=== PATIENT | female | born 1960 | race Caucasian/White ===

== ENCOUNTER 2021-08-13 22:27 | Emergency (ER) | payer OTHER ==
[2021-08-14] MEDS ORDERED: DIPHENHYDRAMINE 50 MG/ML VIAL ONE (01:32)
[2021-08-14] MEDS ORDERED: BEBTELOVIMAB 175 MG/2 ML VIAL IV ONE (01:32)
[2021-08-14] MEDS ORDERED: ACETAMINOPHEN 325 MG TABLET ONE (01:33)
[2021-08-14] MEDS ORDERED: NA CHLORIDE 0.9% 1,000 ML ONE (03:22)
--- NOTE | 2021-08-14 03:35 | ER ---
Nurse's Notes [facility] Name: Winter Cordon Age: 61 yrs Sex: Female : 1960 Arrival Date: 08/13/2021 Time: 22:35 Bed 7 Private MD: Diagnosis: Coronavirus infection, unspecified Presentation: 08/13 22:48 Chief complaint: Patient states: Test COVID + today - pt is concerned because of cancer ld1 history. Requesting antibodies. Coronavirus screen: Client presents with at least one sign or symptom that may indicate coronavirus-19. Standard/surgical mask placed on the client. Ebola Screen: No symptoms or risks identified at this time. Initial Sepsis Screen: Does the patient meet any 2 criteria? No. Patient's initial sepsis screen is negative. Does the patient have a suspected source of infection? No. Patient's initial sepsis screen is negative. Risk Assessment: Do you want to hurt yourself or someone else? Patient reports no desire to harm self or others. Onset of symptoms was August 13, 2021 at 22:49. 22:48 Method Of Arrival: Ambulatory ld1 22:48 Acuity: HERI 4 ld1 Triage Assessment: 22:49 General: Appears in no apparent distress. comfortable, Behavior is calm, cooperative, ld1 appropriate for age. Pain: Denies pain. EENT: No signs and/or symptoms were reported regarding the EENT system. Neuro: Level of Consciousness is awake, alert, obeys commands, Oriented to person, place, time, situation. Cardiovascular: Capillary refill < 3 seconds Patient's skin is warm and dry. Respiratory: Airway is patent Respiratory effort is even, unlabored. GI: Abdomen is flat, non-distended. : No signs and/or symptoms were reported regarding the genitourinary system. Derm: No signs and/or symptoms reported regarding the dermatologic system. Musculoskeletal: No signs and/or symptoms reported regarding the musculoskeletal system. Historical: - Allergies: 22:49 No Known Allergies; ld1 - PMHx: 22:49 cancer; ld1 - PSHx: 22:49 None; ld1 - Immunization history:: Adult Immunizations not up to date, Client reports having NOT received the Covid vaccine. - Social history:: Smoking status: Patient denies any tobacco usage or history of. Patient/guardian denies using alcohol. Screenin/11 01:40 Abuse screen: Denies threats or abuse. Denies injuries from another. Nutritional sm5 screening: No deficits noted. Tuberculosis screening: No symptoms or risk factors identified. Fall Risk None identified. Assessment: 01:40 General: Appears in no apparent distress. Behavior is cooperative. Neuro: No deficits sm5 noted. Aranda Agitation-Sedation Scale (RASS): 0 - Alert and Calm Level of Consciousness is awake, alert, obeys commands, Oriented to person, place, time, situation. Cardiovascular: No deficits noted. Capillary refill < 3 seconds Patient's skin is warm and dry. Respiratory: Reports cough that is Airway is patent Trachea midline Respiratory effort is even, unlabored. 02:50 Reassessment: No changes from previously documented assessment. Patient is alert, sm5 oriented x 3, equal unlabored respirations, skin warm/dry/pink. 04:00 Reassessment: No changes from previously documented assessment. Patient and/or family 5 updated on plan of care and expected duration. Pain level reassessed. Vital Signs: 08/13 22:48 BP 131 / 66; Pulse 126; Resp 18; Temp 99.1(TE); Pulse Ox 99% on R/A; Weight 53.52 kg; ld1 Height 5 ft. 3 in. (160.02 cm); Pain 0/10; 08/14 01:39 BP 144 / 112; Pulse 133; Resp 20; Temp 98.9(O); Pulse Ox 97% on R/A; sm5 02:50 BP 115 / 70; Pulse 111; Resp 18; Pulse Ox 96% ; kd3 03:03 Temp 98.9(O); kd3 08/13 22:48 Body Mass Index 20.90 (53.52 kg, 160.02 cm) ld1 ED Course: 08/13 22:35 Patient arrived in ED. bp1 22:49 Triage completed. ld1 22:49 Arm band placed on right wrist. ld1 22:54 Valerie Leblanc, BOAZ is Primary Nurse. kd3 23:42 Mp Avila MD is Attending Physician. [facility] 08/14 01:30 Inserted saline lock: 20 gauge in left antecubital area, using aseptic technique. sm5 01:40 Patient has correct armband on for positive identification. Bed in low position. Call [facility] light in reach. Side rails up X2. Pulse ox on. NIBP on. 04:00 No provider procedures requiring assistance completed. 5 04:01 IV discontinued, intact, bleeding controlled, No redness/swelling at site. Pressure 5 dressing applied. Administered Medications: 01:35 Drug: Tylenol 650 mg Route: PO; sm5 04:01 Follow up: Response: No adverse reaction 5 01:35 Drug: Benadryl (diphenhydrAMINE) 25 mg Route: IVP; Site: left antecubital; sm5 04:01 Follow up: Response: No adverse reaction 5 03:19 Drug: NS 0.9% 1000 ml Route: IV; Rate: 1 bolus; Site: right antecubital; kd3 04:01 Follow up: IV Status: Completed infusion; IV Intake: 1000ml 5 Medication: 03:04 VIS not applicable for this client. kd3 Intake: 04:01 IV: 1000ml; Total: 1000ml. 5 Outcome: 03:34 Discharge ordered by . [facility] 04:00 Discharged to home ambulatory, with significant other. 5 04:00 Condition: stable 04:00 Discharge instructions given to patient, Instructed on discharge instructions, follow up and referral plans. medication usage, Demonstrated understanding of instructions, follow-up care, medications, Prescriptions given X 4. 04:08 Patient left the ED. [facility] Signatures: Cindi Stevens Maurice, MD MD 7 Luisa Woody RN RN ld1 Valerie Leblanc RN RN kd3 Marine Sheffield RN RN 5 Corrections: (The following items were deleted from the chart) 08/13 22:50 22:49 PMHx: None; ld1 ld1
--- NOTE | 2021-08-14 03:35 | EDPHYS ---
Physician Documentation [facility] Name: Winter Cordon Age: 61 yrs Sex: Female : 1960 Arrival Date: 08/13/2021 Time: 22:35 Bed 7 Private MD: ED Physician Mp Avila HPI: 08/14 00:45 This 61 yrs old Female presents to ER via Ambulatory with complaints of Runny Nose, mh7 Covid+. 00:45 The patient or guardian reports runny nose. Onset: The symptoms/episode began/occurred mh7 last night. Severity of symptoms: At their worst the symptoms were moderate, last night, in the emergency department the symptoms have improved, moderately. Modifying factors: The symptoms are alleviated by nothing, the symptoms are aggravated by nothing. Associated signs and symptoms: Pertinent negatives: chest pain, diarrhea, ear ache, fever, nausea, sore throat, vomiting. Tested positive for COVID at home prior to coming to the ER. Historical: - Allergies: 08/13 22:49 No Known Allergies; ld1 - PMHx: 22:49 cancer; ld1 - PSHx: 22:49 None; ld1 - Immunization history:: Adult Immunizations not up to date, Client reports having NOT received the Covid vaccine. - Social history:: Smoking status: Patient denies any tobacco usage or history of. Patient/guardian denies using alcohol. ROS: 08/14 00:45 Constitutional: Negative for fever, chills, and weight loss, Eyes: Negative for injury, mh7 pain, redness, and discharge, Neck: Negative for injury, pain, and swelling, Cardiovascular: Negative for chest pain, palpitations, and edema, Respiratory: Negative for shortness of breath, cough, wheezing, and pleuritic chest pain, Abdomen/GI: Negative for abdominal pain, nausea, vomiting, diarrhea, and constipation, Back: Negative for injury and pain, : Negative for injury, bleeding, discharge, and swelling, MS/Extremity: Negative for injury and deformity, Skin: Negative for injury, rash, and discoloration, Neuro: Negative for headache, weakness, numbness, tingling, and seizure, Psych: Negative for depression, anxiety, suicide ideation, homicidal ideation, and hallucinations, Allergy/Immunology: Negative for hives, rash, and allergies, Endocrine: Negative for neck swelling, polydipsia, polyuria, polyphagia, and marked weight changes, Hematologic/Lymphatic: Negative for swollen nodes, abnormal bleeding, and unusual bruising. Exam: 00:45 Constitutional: This is a well developed, well nourished patient who is awake, alert, mh7 and in no acute distress. Head/Face: Normocephalic, atraumatic. Eyes: Pupils equal round and reactive to light, extra-ocular motions intact. Lids and lashes normal. Conjunctiva and sclera are non-icteric and not injected. Cornea within normal limits. Periorbital areas with no swelling, redness, or edema. ENT: Nares patent. No nasal discharge, no septal abnormalities noted. Tympanic membranes are normal and external auditory canals are clear. Oropharynx with no redness, swelling, or masses, exudates, or evidence of obstruction, uvula midline. Mucous membranes moist. Neck: Trachea midline, no thyromegaly or masses palpated, and no cervical lymphadenopathy. Supple, full range of motion without nuchal rigidity, or vertebral point tenderness. No Meningismus. Chest/axilla: Normal chest wall appearance and motion. Nontender with no deformity. No lesions are appreciated. Cardiovascular: Regular rate and rhythm with a normal S1 and S2. No gallops, murmurs, or rubs. Normal PMI, no JVD. No pulse deficits. Respiratory: Lungs have equal breath sounds bilaterally, clear to auscultation and percussion. No rales, rhonchi or wheezes noted. No increased work of breathing, no retractions or nasal flaring. Abdomen/GI: Soft, non-tender, with normal bowel sounds. No distension or tympany. No guarding or rebound. No evidence of tenderness throughout. Back: No spinal tenderness. No costovertebral tenderness. Full range of motion. Skin: Warm, dry with normal turgor. Normal color with no rashes, no lesions, and no evidence of cellulitis. MS/ Extremity: Pulses equal, no cyanosis. Neurovascular intact. Full, normal range of motion. Neuro: Awake and alert, GCS 15, oriented to person, place, time, and situation. Cranial nerves II-XII grossly intact. Motor strength 5/5 in all extremities. Sensory grossly intact. Cerebellar exam normal. Normal gait. Psych: Awake, alert, with orientation to person, place and time. Behavior, mood, and affect are within normal limits. Vital Signs: 08/13 22:48 BP 131 / 66; Pulse 126; Resp 18; Temp 99.1(TE); Pulse Ox 99% on R/A; Weight 53.52 kg; ld1 Height 5 ft. 3 in. (160.02 cm); Pain 0/10; 08/14 01:39 BP 144 / 112; Pulse 133; Resp 20; Temp 98.9(O); Pulse Ox 97% on R/A; sm5 02:50 BP 115 / 70; Pulse 111; Resp 18; Pulse Ox 96% ; kd3 03:03 Temp 98.9(O); kd3 08/13 22:48 Body Mass Index 20.90 (53.52 kg, 160.02 cm) ld1 MDM: 03:09 Differential Diagnosis: Influenza Upper Respiratory Infection Viral Syndrome. Data [facility] reviewed: vital signs, nurses notes. Data interpreted: Pulse oximetry: on room air is 98 %. Interpretation: normal. Counseling: I had a detailed discussion with the patient and/or guardian regarding: the historical points, exam findings, and any diagnostic results supporting the discharge/admit diagnosis, the need for outpatient follow up, to return to the emergency department if symptoms worsen or persist or if there are any questions or concerns that arise at home. Response to treatment: the patient's symptoms have markedly improved after treatment, patient is well hydrated. 03:32 ED course: Well appearing, NAD, VSS, no focal neurological deficits. Patient requests [facility] to be discharged from the ER at this time.. 03:34 Patient medically screened. [facility] 08/14 01:15 [place] [facility]: Bebtelovimab 175 mg IV; Complete Time: 01:56 [facility] Administered Medications: 01:35 Drug: Tylenol 650 mg Route: PO; sm5 04:01 Follow up: Response: No adverse reaction 5 01:35 Drug: Benadryl (diphenhydrAMINE) 25 mg Route: IVP; Site: left antecubital; sm5 04:01 Follow up: Response: No adverse reaction [facility] 03:19 Drug: NS 0.9% 1000 ml Route: IV; Rate: 1 bolus; Site: right antecubital; kd3 04:01 Follow up: IV Status: Completed infusion; IV Intake: 1000ml sm5 Disposition Summary: 08/14/21 03:34 Discharge Ordered Location: Home [facility] Problem: new [facility] Symptoms: have improved [facility] Condition: Stable [facility] Diagnosis - Coronavirus infection, unspecified [facility] Followup: [facility] - With: Private Physician - When: 1 - 2 days - Reason: Worsening of condition, Recheck today's complaints, Continuance of care, Re-evaluation by your physician Discharge Instructions: - Discharge Summary Sheet [facility] - COVID-19 [facility] - COVID-19 Frequently Asked Questions [facility] - 10 Things You Can Do to Manage Your COVID-19 Symptoms at Home - [place] [id number] - COVID-19: Quarantine vs. Isolation - [place] [id number] Forms: - Medication Reconciliation Form [facility] - Thank You Letter [facility] - Antibiotic Education [facility] - Prescription Opioid Use [facility] Prescriptions: - albuterol sulfate 90 mcg/actuation Inhalation HFA aerosol inhaler - inhale 1 puff by INHALATION route every 6 hours As needed; 1 Inhaler; Refills: mh7 0, Product Selection Permitted - Tessalon Perles 100 mg Oral Capsule - take 1 capsule by ORAL route every 8 hours As needed; 15 capsule; Refills: 0, 7 Product Selection Permitted - Zithromax Z-Jonel 250 mg Oral Tablet - take 1 tablet by ORAL route as directed for 5 days Day 1 - take two (2) tablets 7 one time. Day 2, 3, 4 , 5 take one (1) tablet once daily.; 6 tablet; Refills: 0, Product Selection Permitted - aspirin 81 mg Oral tablet,chewable - chew 1 tablet by ORAL route once daily; 30 tablet; Refills: 0, Product 7 Selection Permitted Signatures: Mp Avila MD MD 7 Luisa Woody RN RN ld1 Valerie Leblanc RN RN kd3 Marine Sheffield RN RN sm5 Corrections: (The following items were deleted from the chart) 08/13 22:50 22:49 PMHx: None; ld1 ld1
[2021-08-14 04:16] VITALS: TEMP 98.9
[2021-08-14 04:19] VITALS: BP 115/70; O2SAT 96
== END 2021-08-14 04:08 | disposition home or self-care (01) ==
LOC: ER 22:27
DX: U07.1 COVID-19 (principal)
CPT/HCPCS: 96361; 96374; 99284; J1200; J7030

== ENCOUNTER 2022-03-05 10:13 | Emergency (ER) | payer OTHER ==
--- OUTSIDE RECORDS SUMMARY | 2022-03-05 10:17 | XMS REPORT | Clinical Summary ---
:1960 Author Organization [facility] MD [facility] Address [address] [place] [address] Care Team Providers Name Role Phone Vinnie Franks MD Unavailable Unavailable Angie Sage MD Primary Care Provider Allergies No known active allergies Medications Medication Sig Dispensed Refills Start Date End Date Status FEMARA 2.5 mg tablet Take 1 tablet by 0 04/12/2019 Active mouth daily. Active Problems Problem Noted Date Breast cancer 03/06/2001 Overview: left side Mandatory CMS ICD-10 2020 UPDATE Surgical History Surgery Date Site/Laterality Comments MASTECTOMY 03/06/2001 - 03/05/2002 Left APPENDECTOMY RESECTION MASS CHEST WALL 03/06/2006 - 03/05/2007 Left Medical History Medical History Date Comments Breast cancer 2001 left side Family History Medical History Relation Name Comments Lymphoma Father Relation Name Status Comments Father Social History Tobacco Use Types Packs/Day Years Used Date Smoking Tobacco: Never Smokeless Tobacco: Never Alcohol Use Standard Drinks/Week Comments Never 0 (1 standard drink = 0.6 oz pure alcoho l) Alcohol Habits Answer Date Recorded How often do you have a drink containing alcohol? Never 06/10/2019 How many drinks containing alcohol do you have on a typical Not asked day when you are drinking? How often do you have six or more drinks on one occasion? No t asked Sex Assigned at Date Recorded Not on file Obstetrics History Para Term AB IAB SAB Ectopic Multiple Living Live Births 2 0 0 Date Outcome GA Total Labor/2nd/3rd Weight Sex Delivery Anes PTL Leigha A 1 A5 Name Clin Labor Comments Menarche 15 Parity 0 OBC 3 years Hormonal Therapy none Last Pap 2018. Normal Abnormal Pap none Last Leena about 5 years ago. Normal Last Colon none Breast Bx 01/2002. Left side abnormal. M ystectomy left side. 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
[2022-03-05] MEDS ORDERED: MECLIZINE HCL 12.5 MG TAB ONE (11:04)
[2022-03-05 11:12] LABS: Protime INR 1.23
[2022-03-05 11:14] LABS: Absolute Lymphocytes (CBC) 0.2 K/uL (0.7-4.9); Hematocrit 23.9 % (36.0-45.0); Lymphocytes % 35.3 % (15.3-44.8); MCV 106.6 fL (80-100); MPV 9.8 fL (7.6-11.3); RBC Red Blood Cell Count 2.24 M/uL (3.86-4.86)
[2022-03-05 11:27] LABS: Albumin 2.8 g/dL (3.4-5.0); Bilirubin Direct 0.1 mg/dL (0-0.2); Bilirubin Total 0.3 mg/dL (0.2-1.0); Magnesium 1.7 mg/dL (1.6-2.4); Potassium 3.5 mmol/L (3.5-5.1); Troponin High Sensitivity 4.8 pg/mL (<58.9)
[2022-03-05] MEDS ORDERED: NA CHLORIDE 0.9% 1,000 ML ONE (11:41)
[2022-03-05 12:03] LABS: Urine Blood 1+ (Negative); Urine Glucose Negative (Negative); Urine Protein Negative (Negative); Urine Specific Gravity <=1.005 (1.005-1.030)
[2022-03-05 12:35] LABS: Renal Epithelial <5 /HPF (None Seen); Urine Bacteria Loaded /HPF (<20); Urine Mucus Slight /HPF (None Seen); Urine WBC Clump Rare /HPF (None Seen)
[2022-03-05] MEDS ORDERED: NA CHLORIDE 0.9% 50 ML IV ONE (12:52)
[2022-03-05] MEDS ORDERED: CEFTRIAXONE 1000 MG/VIAL ONE (12:52)
[2022-03-05 12:55] LABS: Blood Morphology Comment NOTED (NOT SEEN); Macrocytosis 1+; Platelet Estimate DECR; Platelets, Giant FEW PRESENT; Polychromasia SLIGHT
[2022-03-05 12:56] LABS: Rouleau SLIGHT; Toxic Granulation 1+
[2022-03-05 12:57] LABS: Dohle Bodies PRESENT
[2022-03-05] MEDS ORDERED: TBO-FILGRASTIM 480 MCG/0.8 ML SYR SQ ONE (13:55)
--- NOTE | 2022-03-05 14:34 | RAD REPORT ---
EXAM DESCRIPTION: CT - Head Brain Wo Cont - 03/05/2022 2:21 pm CLINICAL HISTORY: dizziness COMPARISON: No comparisons TECHNIQUE: All CT scans are performed using dose optimization technique as appropriate and may inclu de automated exposure control or mA/KV adjustment according to patient size. FINDINGS: No intracranial hemorrhage, hydrocephalus or extra-axial fluid collection.No areas of brai n edema or evidence of midline shift. Hyperdense secretions in the left maxillary sinus may be inspissated. The calvarium is intact. IMPRESSION: No acute intracranial abnormality.
--- NOTE | 2022-03-05 14:52 | ER ---
Nurse's Notes [facility] Name: Winter Cordon Age: 62 yrs Sex: Female : 1960 Arrival Date: 03/05/2022 Time: 10:27 Bed 20 Private MD: Diagnosis: Neutropenia, unspecified;UTI/ Urinary tract infection, site not specified;Dizziness and giddiness Presentation: 03/05 10:31 Chief complaint: EMS states: dizziness began today, nausea for 2 weeks, had chemo for eh3 stage 4 breast cancer 2 weeks ago. Coronavirus screen: Vaccine status: Patient reports being unvaccinated. contraindicated. Ebola Screen: No symptoms or risks identified at this time. Initial Sepsis Screen: Does the patient meet any 2 criteria? HR > 90 bpm. No. Patient's initial sepsis screen is negative. Does the patient have a suspected source of infection? No. Patient's initial sepsis screen is negative. Risk Assessment: Do you want to hurt yourself or someone else? Patient reports no desire to harm self or others. Onset of symptoms was March 05, 2022. 10:31 Method Of Arrival: EMS: [facility] 10:31 Acuity: HERI 3 eh3 10:39 Care prior to arrival: Medication(s) given: zofran 4 mg. eh3 Triage Assessment: 10:39 General: Appears in no apparent distress. uncomfortable, Behavior is calm, cooperative, eh3 appropriate for age. Pain: Denies pain. EENT: No signs and/or symptoms were reported regarding the EENT system. Neuro: Level of Consciousness is awake, alert, obeys commands, Oriented to person, place, time, situation. Neuro: Reports dizziness, since this morning. Cardiovascular: Capillary refill < 3 seconds Patient's skin is warm and dry. Respiratory: Airway is patent Respiratory effort is even, unlabored, Respiratory pattern is regular, symmetrical. GI: Abdomen is flat, non-distended, Reports nausea. : No signs and/or symptoms were reported regarding the genitourinary system. Derm: No signs and/or symptoms reported regarding the dermatologic system. Musculoskeletal: No signs and/or symptoms reported regarding the musculoskeletal system. Circulation, motion, and sensation intact. Range of motion: intact in all extremities. Historical: - Allergies: 11:13 No Known Allergies; eh3 - Home Meds: 10:34 Metformin Oral [Active]; bisoprolol fumarate oral [Active]; eh3 11:13 cyclophosphamide oral [Active]; Zoledronic acid [Active]; eh3 - PMHx: 10:39 Cancer; eh3 - Immunization history:: Adult Immunizations not up to date, contraindicated. - Social history:: Smoking status: Patient denies any tobacco usage or history of. Patient/guardian denies using alcohol. Screenin:42 [facility] ED Fall Risk Assessment (Adult) History of falling in the last 3 months, 3 including since admission No falls in past 3 months (0 pts) Confusion or Disorientation No (0 pts) Intoxicated or Sedated No (0 pts) Impaired Gait No (0 pts) Mobility Assist Device Used No (0 pt) Altered Elimination No (0 pt) Score/Fall Risk Level 0 - 2 = Low Risk. Abuse screen: Denies threats or abuse. Denies injuries from another. Nutritional screening: No deficits noted. Tuberculosis screening: No symptoms or risk factors identified. Assessment: 10:42 Reassessment: No changes from previously documented assessment. See triage assessment. 3 11:45 Reassessment: Patient appears in no apparent distress at this time. Patient and/or eh3 family updated on plan of care and expected duration. Pain level reassessed. Patient is alert, oriented x 3, equal unlabored respirations, skin warm/dry/pink. Pt states she had a UTI about 3 weeks ago, and then had a urinary catheter put in, and had dysuria afterwards. States she does not currently have any symptoms of UTI but suspects there may be lingering infection. 12:45 Reassessment: Patient appears in no apparent distress at this time. Patient and/or eh3 family updated on plan of care and expected duration. Pain level reassessed. Patient is alert, oriented x 3, equal unlabored respirations, skin warm/dry/pink. 13:45 Reassessment: Patient appears in no apparent distress at this time. Patient and/or eh3 family updated on plan of care and expected duration. Pain level reassessed. Patient is alert, oriented x 3, equal unlabored respirations, skin warm/dry/pink. Faxed order for Neupogen to pharmacy at 1335. 14:45 Reassessment: Patient appears in no apparent distress at this time. Patient and/or 3 family updated on plan of care and expected duration. Pain level reassessed. Patient is alert, oriented x 3, equal unlabored respirations, skin warm/dry/pink. 15:08 Reassessment: Pt will be discharged once fluids are done infusing, approximately 300 mL jl7 remains to infuse at this time. Vital Signs: 10:31 BP 126 / 112; Pulse 115; Resp 18; Temp 98.1(O); Pulse Ox 100% on R/A; Weight 48.99 kg; eh3 Height 5 ft. 2 in. (157.48 cm); 11:00 BP 106 / 63 Supine; Pulse 107; Resp 18; Pulse Ox 100% on R/A; eh3 11:02 BP 102 / 64; Pulse 114; Resp 24; Pulse Ox 100% on R/A; eh3 11:04 BP 98 / 64; Pulse 117; Resp 30; Pulse Ox 100% on R/A; eh3 11:45 BP 106 / 63; Pulse 111; Resp 18; Pulse Ox 97% on R/A; eh3 12:45 BP 91 / 64; Pulse 109; Resp 17; Pulse Ox 99% on R/A; eh3 13:45 BP 108 / 56; Pulse 108; Resp 22; Pulse Ox 100% on R/A; eh3 14:45 BP 96 / 65; Pulse 119; Resp 21; Pulse Ox 100% on R/A; eh3 15:34 BP 104 / 65; Pulse 100; Resp 21; Temp 98.3(O); Pulse Ox 100% ; jl7 10:31 Body Mass Index 19.75 (48.99 kg, 157.48 cm) 3 ED Course: 10:27 Patient arrived in ED. kb3 10:29 Merry Lazcano FNP-C is [facility]. kb 10:29 Isaiah Garcia MD is Attending Physician. kb 10:31 Alize Ibrahim, BOAZ is Primary Nurse. eh3 10:34 Triage completed. eh3 10:39 Arm band placed on. eh3 10:42 Patient has correct armband on for positive identification. Placed in gown. Bed in low eh3 position. Call light in reach. Side rails up X2. Adult w/ patient. Client placed on continuous cardiac and pulse oximetry monitoring. NIBP monitoring applied. Door closed. Noise minimized. Warm blanket given. 10:42 Maintain EMS IV. Dressing intact. Good blood return noted. Site clean \T\ dry. Gauge \T\ eh 3 site: 20g RAC. 14:23 CT Head Brain wo Cont In Process Unspecified. EDMS 15:34 No provider procedures requiring assistance completed. IV discontinued, intact, jl7 bleeding controlled, No redness/swelling at site. Pressure dressing applied. Administered Medications: 10:55 Drug: Meclizine 25 mg Route: PO; eh3 11:45 Follow up: Response: Nausea is decreased eh3 11:45 Drug: NS 0.9% 1000 ml Route: IV; Rate: 1000 ml; Site: right antecubital; eh3 15:35 Follow up: Response: No adverse reaction; IV Status: Completed infusion; IV Intake: jl7 1000ml 15:36 Follow up: IV Status: Completed infusion; IV Intake: 1000ml eh3 13:09 Drug: Rocephin (cefTRIAXone) 1 grams Route: IV; Rate: calculated rate; Site: right eh3 antecubital; 14:17 Follow up: Response: No adverse reaction; IV Status: Completed infusion; IV Intake: [id number] 14:00 Drug: Neupogen 480 mcg Route: Sub-Q; Site: left lower abdomen; eh3 15:35 Follow up: Response: No adverse reaction eh3 Medication: 15:34 VIS not applicable for this client. jl7 Intake: 14:17 IV: 50ml; Total: 50ml. eh3 15:35 IV: 1000ml; Total: 1050ml. jl7 15:36 IV: 1000ml; Total: 2050ml. eh3 Outcome: 14:51 Discharge ordered by MD. loredo 15:35 Discharged to home ambulatory, with family. jl7 15:35 Condition: stable 15:35 Discharge instructions given to patient, family, Instructed on discharge instructions, follow up and referral plans. medication usage, Demonstrated understanding of instructions, follow-up care, medications, Prescriptions given X 2. 15:36 Patient left the ED. jl7 Addendum: 03/09/2022 09:49 Addendum: Culture Results: Positive urine culture. No further action required. Bacteria a a5 sensitive to prescribed antibiotic. Signatures: Dispatcher [employer] EDMS Merry Lazcano, REFINERY OPERATOR [employer]-Steff CHANEY-Genesis Tirado, RN RN aa5 Kat Kaur RN RN jl7 Alize Ibrahim RN RN 3 Melissa Bejarano RN RN kb3 Corrections: (The following items were deleted from the chart) 03/05 11:17 10:34 Allergies: No Known Allergies; [place] [id number] 11: 10:39 Home Meds: Low dose chemo; [place] [id number] 11:17 10:39 Home Meds: bisphosphonate; [place] [id number] 11: 11:13 Allergies: Endoxcin; [place] [id number] 15:36 14:45 BP 96 / 65; [facility]
--- NOTE | 2022-03-05 14:52 | EDPHYS ---
Physician Documentation [facility] Name: Winter Cordon Age: 62 yrs Sex: Female : 1960 Arrival Date: 03/05/2022 Time: 10:27 Bed 20 Private MD: ED Physician Isaiah Garcia HPI: 03/05 11:37 This 62 yrs old Female presents to ER via EMS with complaints of dizziness. kb 11:37 The patient presents with dizziness. Onset: The symptoms/episode began/occurred this kb morning. Context: occurred at home. Modifying factors: The symptoms are alleviated by nothing, the symptoms are aggravated by movement of head, changing position. Associated signs and symptoms: Pertinent positives: nausea. Severity of symptoms: At their worst the symptoms were moderate in the emergency department the symptoms are unchanged. Patient's baseline: Neuro: alert and fully oriented, Motor: no deficits, Ambulation: walks without assistance, Speech: normal. The patient has not experienced similar symptoms in the past. The patient has not recently seen a physician. Pt reports nausea for 2 weeks after getting chemo treatment. Today has had dizziness that is worse with movement of head and position changes. Historical: - Allergies: 11:13 No Known Allergies; eh3 - Home Meds: 10:34 Metformin Oral [Active]; bisoprolol fumarate oral [Active]; eh3 11:13 cyclophosphamide oral [Active]; Zoledronic acid [Active]; eh3 - PMHx: 10:39 Cancer; eh3 - Immunization history:: Adult Immunizations not up to date, contraindicated. - Social history:: Smoking status: Patient denies any tobacco usage or history of. Patient/guardian denies using alcohol. ROS: 11:37 Constitutional: Negative for fever, chills, and weight loss. kb 11:37 Abdomen/GI: Positive for nausea. 11:37 Neuro: Positive for dizziness. 11:37 All other systems are negative. Exam: 11:39 Constitutional: This is a well developed, well nourished patient who is awake, alert, kb and in no acute distress. Head/Face: Normocephalic, atraumatic. Eyes: Pupils equal round and reactive to light, extra-ocular motions intact. Lids and lashes normal. Conjunctiva and sclera are non-icteric and not injected. Cornea within normal limits. Periorbital areas with no swelling, redness, or edema. ENT: Moist Mucous membranes Cardiovascular: Regular rate and rhythm with a normal S1 and S2. No gallops, murmurs, or rubs. No pulse deficits. Respiratory: Respirations even and unlabored. No increased work of breathing. Talking in full sentences Abdomen/GI: Soft, non-tender. No distention Skin: Warm, dry with normal turgor. Normal color. MS/ Extremity: Pulses equal, no cyanosis. Neurovascular intact. Full, normal range of motion. Neuro: Awake and alert, GCS 15, oriented to person, place, time, and situation. Moves all extremities. Normal gait. 11:39 ECG was reviewed by the Attending Physician. Vital Signs: 10:31 BP 126 / 112; Pulse 115; Resp 18; Temp 98.1(O); Pulse Ox 100% on R/A; Weight 48.99 kg; eh3 Height 5 ft. 2 in. (157.48 cm); 11:00 BP 106 / 63 Supine; Pulse 107; Resp 18; Pulse Ox 100% on R/A; eh3 11:02 BP 102 / 64; Pulse 114; Resp 24; Pulse Ox 100% on R/A; eh3 11:04 BP 98 / 64; Pulse 117; Resp 30; Pulse Ox 100% on R/A; eh3 11:45 BP 106 / 63; Pulse 111; Resp 18; Pulse Ox 97% on R/A; eh3 12:45 BP 91 / 64; Pulse 109; Resp 17; Pulse Ox 99% on R/A; eh3 13:45 BP 108 / 56; Pulse 108; Resp 22; Pulse Ox 100% on R/A; eh3 14:45 BP 96 / 65; Pulse 119; Resp 21; Pulse Ox 100% on R/A; eh3 15:34 BP 104 / 65; Pulse 100; Resp 21; Temp 98.3(O); Pulse Ox 100% ; jl7 10:31 Body Mass Index 19.75 (48.99 kg, 157.48 cm) eh3 MDM: 10:29 Patient medically screened. kb 11:37 Data reviewed: vital signs, nurses notes. Data interpreted: Pulse oximetry: on room air kb is 100 %. Interpretation: normal. 13:30 Counseling: I had a detailed discussion with the patient and/or guardian regarding: the kb historical points, exam findings, and any diagnostic results supporting the discharge/admit diagnosis, lab results, the need for outpatient follow up, oncology, to return to the emergency department if symptoms worsen or persist or if there are any questions or concerns that arise at home. Physician consultation: Spoke with pt's oncologist in [place] who recommended neupogen injection but wanted our oncologist to be involved as well. Consulted Dr Patricia who recommended antibiotics for the UTI and daily neupogen 480mcg injections until WBC are 2.5. Pt will have to come to ER for injections tomorrow and Monday due to holiday and office being closed. Dr Patricia does not recommend having pt's CBC redrawn in the ER, they will recheck labs when pt goes for her appt with Dr Vera on Monday. . 03/05 10:30 Order name: Basic Metabolic Panel; Complete Time: 11:32 kb 03/05 10:30 Order name: CBC with Diff kb 03/05 10:30 Order name: Hepatic Function; Complete Time: 11:32 kb 03/05 10:30 Order name: Magnesium; Complete Time: 11:32 kb 03/05 10:30 Order name: Protime (+inr); Complete Time: 11:12 kb 03/05 10:30 Order name: Ptt, Activated; Complete Time: 11:12 kb 03/05 10:30 Order name: Troponin High Sensitivity; Complete Time: 11:32 kb 03/05 11:19 Order name: Manual Differential EDMS 03/05 12:04 Order name: Urine Dipstick-Ancillary; Complete Time: 12:07 EDMS 03/05 12:07 Order name: Urine Microscopic Only; Complete Time: 12:40 kb 03/05 12:42 Order name: Urine Culture EDMS 03/05 13:34 Order name: CT Head Brain wo Cont; Complete Time: 14:45 kb 03/05 10:30 Order name: EKG; Complete Time: 10:31 kb 03/05 10:30 Order name: Cardiac monitoring; Complete Time: 10:42 kb 03/05 10:30 Order name: EKG - Nurse/Tech; Complete Time: 10:47 kb 03/05 10:30 Order name: IV Saline Lock; Complete Time: 10:31 kb 03/05 10:30 Order name: Labs collected and sent; Complete Time: 10:31 kb 03/05 10:30 Order name: NPO; Complete Time: 10:31 kb 03/05 10:30 Order name: O2 Per Protocol; Complete Time: 10:31 kb 03/05 10:30 Order name: O2 Sat Monitoring; Complete Time: 10:31 kb 03/05 10:30 Order name: Orthostatics; Complete Time: 11:13 kb 03/05 10:30 Order name: Urine Dipstick-Ancillary (obtain specimen); Complete Time: 12:03 kb EC:39 Rate is 107 beats/min. Rhythm is regular. QRS Ruby is Normal. NJ interval is normal at kb 166 msec. QRS interval is normal at 80 msec. QT interval is normal at 445 msec. Administered Medications: 10:55 Drug: Meclizine 25 mg Route: PO; 3 11:45 Follow up: Response: Nausea is decreased 3 11:45 Drug: NS 0.9% 1000 ml Route: IV; Rate: 1000 ml; Site: right antecubital; 3 15:35 Follow up: Response: No adverse reaction; IV Status: Completed infusion; IV Intake: jl7 1000ml 15:36 Follow up: IV Status: Completed infusion; IV Intake: 1000ml 3 13:09 Drug: Rocephin (cefTRIAXone) 1 grams Route: IV; Rate: calculated rate; Site: right 3 antecubital; 14:17 Follow up: Response: No adverse reaction; IV Status: Completed infusion; IV Intake: [id number] 14:00 Drug: Neupogen 480 mcg Route: Sub-Q; Site: left lower abdomen; 3 15:35 Follow up: Response: No adverse reaction 3 Disposition: 17:54 Co-signature as Attending Physician, Isaiah Garcia MD. rn Disposition Summary: 03/05/22 14:51 Discharge Ordered Location: Home kb Condition: Stable kb Diagnosis - Neutropenia, unspecified kb - UTI/ Urinary tract infection, site not specified kb - Dizziness and giddiness kb Followup: kb - With: Emergency Department - When: As needed - Reason: Worsening of condition Followup: kb - With: Private Physician - When: 2 - 3 days - Reason: Recheck today's complaints, Continuance of care, Re-evaluation by your physician Discharge Instructions: - Discharge Summary Sheet kb - Urinary Tract Infection, Adult, [id number] kb - Dizziness, [id number] kb Forms: - Medication Reconciliation Form kb - Thank You Letter kb - Antibiotic Education kb - Prescription Opioid Use kb Prescriptions: - Augmentin 875-125 mg Oral Tablet - take 1 tablet by ORAL route every 12 hours for 7 days; 14 tablet; Refills: 0, kb Product Selection Permitted - Meclizine 25 mg Oral Tablet - take 1 tablet by ORAL route every 8 hours As needed; 30 tablet; Refills: 0, kb Product Selection Permitted - ondansetron 4 mg Oral tablet,disintegrating - place 1 tablet by TRANSLINGUAL route every 6 hours As needed; 20 tablet; kb Refills: 0, Product Selection Permitted Signatures: Dispatcher [employer] EDMS Merry Lazcano, SHIV-C TRACK MAN-Isaiah Burks MD MD rn Hall, Erin, RN RN 3 Kat Kaur RN jl7 Corrections: (The following items were deleted from the chart) 11:17 10:34 Allergies: No Known Allergies; [place] [id number] 11:17 10:39 Home Meds: Low dose chemo; [place] [address] 11:17 10:39 Home Meds: bisphosphonate; [place] [address] 11:17 11:13 Allergies: Endoxcin; [place] [address]
[2022-03-05 15:47] VITALS: O2SAT 100
[2022-03-05 15:49] VITALS: BP 104/65; TEMP 98.3
--- NOTE | 2022-03-08 08:37 | EKG ---
Test Date: 2022-03-05 Test Time: 10:52:06 Judicial Law Clerk: GERDA MEASUREMENT RESULTS: Intervals: Rate: 107 ME: 162 QRSD: 78 QT: 328 QTc: 437 [place]: P: 70 ME: 162 QRS: 52 T: 63 INTERPRETIVE STATEMENTS: Sinus tachycardia Otherwise normal ECG Compared to ECG 11/03/2010 20:31:46 ST (T wave) deviation no longer present Electronically Signed On 03-08-22 08:32:53 SILK WASHING MACHINE OPERATOR by Arturo Jacobs
--- NOTE | 2022-03-09 16:10 | EKG ---
Test Date: 2022-03-05 Test Time: 10:57:16 Financial Compliance Officer: GERDA MEASUREMENT RESULTS: Intervals: Rate: 107 IN: 166 QRSD: 80 QT: 334 QTc: 445 [place]: P: 73 IN: 166 QRS: 49 T: 66 INTERPRETIVE STATEMENTS: Sinus tachycardia Otherwise normal ECG Compared to ECG 03/05/2022 10:52:06 No significant changes Electronically Signed On 03-09-22 16:06:54 ADOBE LAYER HELPER by Dc Huang
== END 2022-03-05 15:36 | disposition home or self-care (01) ==
LOC: ER 10:13
DX: N39.0 Urinary tract infection, site not specified (principal); D70.9 Neutropenia, unspecified; Z85.3 Personal history of malignant neoplasm of breast
CPT/HCPCS: 96365; 96361; 93005; 87088; 85025; 87086; 80048; 36415; 83735; 85610; 80076; 85730; 87077; 87186; 84484; 70450; 96372; 99284; J8597; J1447; J7030; 81003; 81015

== ENCOUNTER 2022-03-06 14:45 | Emergency (ER) | payer OTHER ==
--- OUTSIDE RECORDS SUMMARY | 2022-03-06 14:51 | XMS REPORT | Clinical Summary ---
:1960 Author Organization [facility] MD [facility] Address [address] [place] [address] Care Team Providers Name Role Phone Vinnie [...] Vaccination (#1) 1960 Results Not on fileafter 03/06/2021 Insurance Payer Benefit Plan / Subscriber ID Effective Dates Phone Addre ss Type Group [employer] MANAGED A[employer] HMO [id number] 2007-Present [id number] [place] [address] [employer] MANAGED A[employer] HMO [id number] 2007-Present [id number] [place] [address] Care Teams Shared Services And Outsourcing Manager Relationship Specialty Start Date End Date Vinnie Franks MD PCP - External Referring Family Practice 9 Angie Sage MD PCP - General Cancer Prevention 06/06/[address] [place] [id number]
--- NOTE | 2022-03-06 15:54 | EDPHYS ---
Physician Documentation [facility] Name: Winter Cordon Age: 62 yrs Sex: Female : 1960 Arrival Date: 03/06/2022 Time: 14:46 Bed 12 Private MD: ED Physician Isaiah Garcia HPI: 03/06 14:49 This 62 yrs old Female presents to ER via Unassigned with complaints of Injection. rn 14:49 Pt returns for neupogen injection. Had one yesterday for neutropenia. Oncologist wants rn daily injections until her appointment on Monday, 480mcg daily. Patient without any acute complaints. . Onset: The symptoms/episode began/occurred at an unknown time. Severity of symptoms: At their worst the symptoms were moderate in the emergency department the symptoms are unchanged. The patient has experienced similar episodes in the past. The patient has been recently seen at the [facility] Emergency Department. Historical: - Allergies: 15:49 No Known Allergies; kb3 - Home Meds: 15:49 bisoprolol fumarate Oral [Active]; cyclophosphamide Oral [Active]; Metformin Oral kb3 [Active]; Zoledronic acid [Active]; - PMHx: 15:49 Cancer; kb3 - PSHx: 15:49 None; kb3 - Immunization history:: Adult Immunizations not up to date, Last tetanus immunization: unknown. - Family history:: not pertinent. - Social history:: Smoking status: Patient denies any tobacco usage or history of. - Hospitalizations: : No recent hospitalization is reported. ROS: 14:49 Constitutional: Negative for fever, chills, and weight loss, Cardiovascular: Negative rn for chest pain, palpitations, and edema, Neuro: Negative for headache, weakness, numbness, tingling, and seizure. Exam: 14:49 Constitutional: This is a well developed, well nourished patient who is awake, alert, rn and in no acute distress. Cardiovascular: Regular rate and rhythm. No pulse deficits. Respiratory: No increased work of breathing, no retractions or nasal flaring. Skin: Warm, dry. Normal color with no rashes, no lesions, and no evidence of cellulitis. Neuro: Awake and alert, GCS 15 Vital Signs: 15:08 BP 99 / 50; Pulse 123; Resp 18; Pulse Ox 97% on R/A; kr3 MDM: 14:47 Patient medically screened. rn 15:52 Differential Diagnosis neutropenia. Data reviewed: vital signs, nurses notes, old rn medical records, and as a result, I will discharge patient. Counseling: I had a detailed discussion with the patient and/or guardian regarding: the historical points, exam findings, and any diagnostic results supporting the discharge/admit diagnosis, the need for outpatient follow up, to return to the emergency department if symptoms worsen or persist or if there are any questions or concerns that arise at home. Response to treatment: the patient's symptoms have mildly improved after treatment, and as a result, I will discharge patient. ED course: Pt here for new neupogen shot since day surgery or infusion center closed for holidays. Pt feels better compared to yesterday, is eating, and has more energy. Reports HR always in 120s, and BP on low side due to medication to keep HR down. . Administered Medications: 16:02 Drug: Neupogen 480 mcg Route: Sub-Q; Site: right upper abdomen; kb3 16:15 Follow up: Response: No adverse reaction kb3 Disposition Summary: 03/06/22 15:54 Discharge Ordered Location: Home rn Problem: new rn Symptoms: have improved rn Condition: Stable rn Diagnosis - Neutropenia, unspecified rn Followup: rn - With: Private Physician - When: Tomorrow - Reason: Recheck today's complaints, Re-evaluation by your physician Discharge Instructions: - Discharge Summary Sheet rn - Neutropenia rn Forms: - Medication Reconciliation Form rn - Thank You Letter rn - Antibiotic tax intern - Prescription Opioid Use rn Signatures: Isaiah Garcia MD MD rn Bradberry, Kelly, RN RN kb3
--- NOTE | 2022-03-06 15:54 | ER ---
Nurse's Notes [facility] Name: Winter Cordon Age: 62 yrs Sex: Female : 1960 Arrival Date: 03/06/2022 Time: 14:46 Bed 12 Private MD: Diagnosis: Neutropenia, unspecified Presentation: 03/06 15:08 Chief complaint: Patient states: I came to get an injection, sent by Priscilla Lazcano. kr3 Initial Sepsis Screen: Does the patient meet any 2 criteria? No. Patient's initial sepsis screen is negative. Does the patient have a suspected source of infection? No. Patient's initial sepsis screen is negative. Risk Assessment: Do you want to hurt yourself or someone else? Patient reports no desire to harm self or others. 15:08 Method Of Arrival: Ambulatory kr3 15:08 Acuity: HERI 4 kr3 16:19 Coronavirus screen: Vaccine status: Patient reports being unvaccinated. Ebola Screen: kb3 Patient negative for fever greater than or equal to 101.5 degrees Fahrenheit, and additional compatible Ebola Virus Disease symptoms Patient denies exposure to infectious person. Patient denies travel to an Ebola-affected area in the 21 days before illness onset. Triage Assessment: 15:11 General: Appears in no apparent distress. comfortable, Behavior is calm, cooperative, kr3 appropriate for age. Pain: Denies pain. Historical: - Allergies: 15:49 No Known Allergies; kb3 - Home Meds: 15:49 bisoprolol fumarate Oral [Active]; cyclophosphamide Oral [Active]; Metformin Oral kb3 [Active]; Zoledronic acid [Active]; - PMHx: 15:49 Cancer; kb3 - PSHx: 15:49 None; kb3 - Immunization history:: Adult Immunizations not up to date, Last tetanus immunization: unknown. - Family history:: not pertinent. - Social history:: Smoking status: Patient denies any tobacco usage or history of. - Hospitalizations: : No recent hospitalization is reported. Screenin:49 [facility] ED Fall Risk Assessment (Adult) History of falling in the last 3 months, kb3 including since admission No falls in past 3 months (0 pts) Confusion or Disorientation No (0 pts) Intoxicated or Sedated No (0 pts) Impaired Gait No (0 pts) Mobility Assist Device Used No (0 pt) Altered Elimination No (0 pt) Score/Fall Risk Level 0 - 2 = Low Risk Oriented to surroundings, Maintained a safe environment, Educated pt \T\ family on fall prevention, incl call for assistance when getting out of bed, Assessed \T\ reinforced patient's understanding of fall precautions, Provided non-skid footwear, Hourly rounding (assess needs \T\ fall precautionary measures) done, Used ambulatory aids as needed (educated on \T\ assisted with), Used gait belt as appropriate. Abuse screen: Denies threats or abuse. Denies injuries from another. Nutritional screening: No deficits noted. Tuberculosis screening: No symptoms or risk factors identified. Assessment: 15:30 General: Appears in no apparent distress. Behavior is calm, cooperative, Pt reports she kbCody is here for a Neupogen injection. Reports she was seen in this ER yesterday for nausea secondary to chemotherapy received [address] Patricia recommended Neupogen injections today and tomorrow in ER and follow up with Dr Vera in office on Monday for labs.. 15:44 General: Neupogen requested from pharmacy. kb3 Vital Signs: 15:08 BP 99 / 50; Pulse 123; Resp 18; Pulse Ox 97% on R/A; kr3 ED Course: 14:46 Patient arrived in ED. rg4 14:47 Isaiah Garcia MD is Attending Physician. rn 15:11 Triage completed. kr3 15:35 Melissa Bejarano, RN is Primary Nurse. kb3 15:49 Patient has correct armband on for positive identification. Bed in low position. kb3 15:49 No provider procedures requiring assistance completed. Patient did not have IV access kb3 during this emergency room visit. 15:50 Arm band placed on right wrist. Patient placed in an exam room. kb3 Administered Medications: 16:02 Drug: Neupogen 480 mcg Route: Sub-Q; Site: right upper abdomen; kb3 16:15 Follow up: Response: No adverse reaction kb3 Medication: 15:49 VIS not applicable for this client. kb3 Outcome: 15:54 Discharge ordered by . rn 16:15 Discharged to home ambulatory, with family. kb3 16:15 Condition: stable kb3 16:15 Discharge instructions given to patient, Instructed on discharge instructions, follow up and referral plans. medication usage, Demonstrated understanding of instructions, follow-up care, medications. 16:17 Patient left the ED. mm9 Signatures: Isaiah Garcia MD MD rn Garcia, Rubi rg4 Chasidy Veliz RN RN kr3 Melissa Bejarano RN RN kb3 Florencia Vazquez mm9
[2022-03-06] MEDS ORDERED: TBO-FILGRASTIM 480 MCG/0.8 ML SYR SQ ONE (16:00)
[2022-03-06 16:25] VITALS: BP 99/50; O2SAT 97
== END 2022-03-06 16:17 | disposition home or self-care (01) ==
LOC: ER 14:45
DX: D70.9 Neutropenia, unspecified (principal)
CPT/HCPCS: 96372; 99282; J1447

== ENCOUNTER 2022-03-07 10:03 | Emergency (ER) | payer OTHER ==
--- OUTSIDE RECORDS SUMMARY | 2022-03-07 10:06 | XMS REPORT | Clinical Summary ---
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
[2022-03-07] MEDS ORDERED: ONDANSETRON 4 MG (ODT) TAB ONE (10:29)
[2022-03-07] MEDS ORDERED: TBO-FILGRASTIM 480 MCG/0.8 ML SYR SQ ONE (11:00)
--- NOTE | 2022-03-07 11:01 | ER ---
Nurse's Notes [facility] [place] [place] Name: Winter Cordon Age: 62 yrs Sex: Female : 1960 Arrival Date: 03/07/2022 Time: 10:04 Bed 3 Private MD: Diagnosis: Neutropenia, unspecified Presentation: 03/07 10:12 Chief complaint: Patient states: Here to receive injection of Neupogen as her cancer ss doctor's office is closed due to the holiday. Coronavirus screen: Client denies travel out of the [place] in the last 14 days. Ebola Screen: Patient denies exposure to infectious person. Patient denies travel to an Ebola-affected area in the 21 days before illness onset. Initial Sepsis Screen: Does the patient meet any 2 criteria? No. Patient's initial sepsis screen is negative. Does the patient have a suspected source of infection? No. Patient's initial sepsis screen is negative. Risk Assessment: Do you want to hurt yourself or someone else? Patient reports no desire to harm self or others. Onset of symptoms is unknown. 10:12 Method Of Arrival: Ambulatory ss 10:12 Acuity: HERI 4 ss Historical: - Allergies: 10:14 No Known Allergies; ss - PMHx: 10:14 Cancer; ss - Immunization history:: Adult Immunizations up to date. - Social history:: Smoking status: Patient denies any tobacco usage or history of. Screenin:32 [facility] ED Fall Risk Assessment (Adult) History of falling in the last 3 months, ko1 including since admission No falls in past 3 months (0 pts) Confusion or Disorientation No (0 pts) Intoxicated or Sedated No (0 pts) Impaired Gait No (0 pts) Mobility Assist Device Used No (0 pt) Altered Elimination No (0 pt) Score/Fall Risk Level 0 - 2 = Low Risk Oriented to surroundings, Maintained a safe environment, Educated pt \T\ family on fall prevention, incl call for assistance when getting out of bed, Assessed \T\ reinforced patient's understanding of fall precautions, Provided non-skid footwear, Hourly rounding (assess needs \T\ fall precautionary measures) done, Used ambulatory aids as needed (educated on \T\ assisted with), Used gait belt as appropriate. Abuse screen: Denies threats or abuse. Denies injuries from another. Nutritional screening: No deficits noted. Tuberculosis screening: No symptoms or risk factors identified. Assessment: 10:32 General: Appears in no apparent distress. comfortable, Behavior is calm, cooperative, ko1 appropriate for age. Pain: Denies pain. Neuro: No deficits noted. Cardiovascular: No deficits noted. Respiratory: No deficits noted. GI: No deficits noted. : No deficits noted. EENT: No deficits noted. Derm: No deficits noted. Musculoskeletal: No deficits noted. 10:48 Reassessment: Patient appears in no apparent distress at this time. No changes from ko1 previously documented assessment. Patient is alert, oriented x 3, equal unlabored respirations, skin warm/dry/pink. Rechecked patient heart rate, she states it is normally 120-130's, family member in room confirms this. She is afebrile, no pain, no dizziness. Patient states that at one time she was placed on a beta manuel, however due to her blood pressure running low, she did not tolerate it and was taken off. Patient denies pain at this time. Vital Signs: 10:14 BP 109 / 67; Pulse 134; Resp 18; Temp 99.0(TE); Pulse Ox 100% on R/A; Pain 0/10; ss ED Course: 10:04 Patient arrived in ED. am2 10:06 Robson Gray PA is PHCP. [facility] 10:07 Yanelis Fernandez MD is Attending Physician. [facility] 10:14 Triage completed. ss 10:14 Arm band placed on left wrist. ss 10:24 Meredith Fraser, BOAZ is Primary Nurse. ko1 10:32 Patient has correct armband on for positive identification. Placed in gown. Bed in low ko1 position. Call light in reach. Side rails up X 1. Pulse ox on. NIBP on. 10:32 No provider procedures requiring assistance completed. Patient did not have IV access ko1 during this emergency room visit. Administered Medications: 10:27 Drug: Ondansetron 4 mg Route: PO; ko1 10:50 Drug: Neupogen 480 mcg Route: Sub-Q; Site: left lower abdomen; ko1 11:06 CANCELLED (different dosee): Neupogen 300 mcg Sub-Q once ko1 Medication: 10:32 VIS not applicable for this client. ko1 Outcome: 10:48 Discharged to home ambulatory, with family. ko1 10:48 Condition: stable 10:48 Discharge instructions given to patient, family, Instructed on discharge instructions, follow up and referral plans. Demonstrated understanding of instructions, follow-up care. 11:01 Discharge ordered by MD. torres 11:07 Patient left the ED. ko1 Signatures: Robson Gray PA PA jmm Smirch, Shelby, RN RN ss Moreno, Amanda am2 Oliver, Kathy, RN RN ko1
--- NOTE | 2022-03-07 11:01 | EDPHYS ---
Physician Documentation [facility] Name: Winter Cordon Age: 62 yrs Sex: Female : 1960 Arrival Date: 03/07/2022 Time: 10:04 Bed 3 Private MD: ED Physician Yanelis Fernandez HPI: 03/07 10:59 This 62 yrs old Female presents to ER via Ambulatory with complaints of injection. jmm 10:59 Is a 62-year-old female that presents ED with complaints of neutropenia. Patient's [facility] oncologist recommended the patient go to the ER for Neupogen, due to there are office being closed. Patient denies any chest pain, shortness of breath, abdominal pain, fever, and the concerning symptoms.. Historical: - Allergies: 10:14 No Known Allergies; ss - PMHx: 10:14 Cancer; ss - Immunization history:: Adult Immunizations up to date. - Social history:: Smoking status: Patient denies any tobacco usage or history of. ROS: 10:59 Constitutional: Negative for fever, chills, and weight loss, Cardiovascular: Negative jmm for chest pain, palpitations, and edema, Respiratory: Negative for shortness of breath, cough, wheezing, and pleuritic chest pain, Abdomen/GI: Negative for abdominal pain, nausea, vomiting, diarrhea, and constipation. 10:59 All other systems are negative. Exam: 10:59 Constitutional: This is a well developed, well nourished patient who is awake, alert, jmm and in no acute distress. Head/Face: atraumatic. Eyes: EOMI, no conjunctival erythema appreciated ENT: Moist Mucus Membranes Neck: Trachea midline, Supple Chest/axilla: Normal chest wall appearance and motion. 10:59 Respiratory: Normal respirations, no respiratory distress appreciated Abdomen/GI: Non distended Back: Normal ROM Skin: General appearance color normal MS/ Extremity: Moves all extremities, no obvious deformities appreciated, no edema noted to the lower extremities Neuro: Awake and alert Psych: Behavior is normal, Mood is normal, Patient is cooperative and pleasant 10:59 Cardiovascular: Rate: tachycardic, Rhythm: regular. Vital Signs: 10:14 BP 109 / 67; Pulse 134; Resp 18; Temp 99.0(TE); Pulse Ox 100% on R/A; Pain 0/10; ss MDM: 10:24 Patient medically screened. [facility] 11:00 Data reviewed: vital signs, nurses notes. Counseling: I had a detailed discussion with melissa the patient and/or guardian regarding: the historical points, exam findings, and any diagnostic results supporting the discharge/admit diagnosis, the need for outpatient follow up, to return to the emergency department if symptoms worsen or persist or if there are any questions or concerns that arise at home. ED course: Patient is alert nontoxic in appearance NAD. Patient's heart rate is normally in the 120s and 130s. Patient has no chest pain or shortness of breath. Patient advised follow-up PCP and otherwise given strict return precautions. Patient understood and agrees plan of care.. Administered Medications: 10:27 Drug: Ondansetron 4 mg Route: PO; ko1 10:50 Drug: Neupogen 480 mcg Route: Sub-Q; Site: left lower abdomen; ko1 11:06 CANCELLED (different dosee): Neupogen 300 mcg Sub-Q once ko1 Disposition: 18:36 STAFF ATTESTATION STATEMENT: I was immediately available onsite in the emergency sd2 department for consultation in the care of this patient. I did not see or examine this patient. Yanelis Fernandez MD. Disposition Summary: 03/07/22 11:01 Discharge Ordered Location: Home [facility] Condition: Stable [facility] Diagnosis - Neutropenia, unspecified [facility] Followup: [facility] - With: Private Physician - When: 1 - 2 days - Reason: Recheck today's complaints, Continuance of care, Re-evaluation by your physician Discharge Instructions: - Discharge Summary Sheet [facility] - Neutropenia [facility] Forms: - Medication Reconciliation Form [facility] - Thank You Letter [facility] - Antibiotic Education [facility] - Prescription Opioid Use [facility] Signatures: Robson Gray PA PA [facility] Dorcas Santo, BOAZ RN Yanelis Valenzuela MD MD [facility] Meredith Fraser, BOAZ RN ko1 Corrections: (The following items were deleted from the chart) 11:06 10:24 Neupogen 300 mcg Sub-Q once ordered. jmm ko1 11:06 10:30 Neupogen 300 mcg Sub-Q once ordered. ko1 ko1
[2022-03-07 11:21] VITALS: BP 109/67; TEMP 99; O2SAT 100
== END 2022-03-07 11:07 | disposition home or self-care (01) ==
LOC: ER 10:03
DX: D70.9 Neutropenia, unspecified (principal)
CPT/HCPCS: 96372; 99283; Q0162; J1447

== ENCOUNTER 2022-08-13 11:30 | Emergency (ER) | payer OTHER ==
--- OUTSIDE RECORDS SUMMARY | 2022-08-13 11:34 | XMS REPORT | Clinical Summary ---
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
[2022-08-13] MEDS ORDERED: NA CHLORIDE 0.9% 1,000 ML ONE (13:48)
[2022-08-13] MEDS ORDERED: FAMOTIDINE 20 MG/2 ML VIAL IV ONE (13:48)
[2022-08-13 14:14] LABS: Absolute Lymphocytes (CBC) 0.5 K/uL (0.7-4.9); Hematocrit 25.8 % (36.0-45.0); MCV 103.8 fL (80-100); MPV 9.4 fL (7.6-11.3); RBC Red Blood Cell Count 2.48 M/uL (3.86-4.86)
[2022-08-13 14:27] LABS: Bilirubin Total 0.4 mg/dL (0.2-1.0); Magnesium 2.1 mg/dL (1.6-2.4); Phosphorus 2.8 mg/dL (2.5-4.9); Potassium 3.9 mEq/L (3.5-5.1); Protein, Total 7.1 g/dL (6.4-8.2)
[2022-08-13] MEDS ORDERED: NA CHLORIDE 0.9% 500 ML ONE (15:07)
--- NOTE | 2022-08-13 17:19 | ER ---
Nurse's Notes [facility] Name: Winter Cordon Age: 62 yrs Sex: Female : 1960 Arrival Date: 08/13/2022 Time: 11:30 Bed 13 Private MD: Diagnosis: Volume depletion, unspecified Presentation: 08/13 11:49 Chief complaint: Patient states: NAUSEA/VOMITING SINCE MONDAY, DAILY CHEMO TREATMENT. bp Coronavirus screen: At this time, the client does not indicate any symptoms associated with coronavirus-19. Ebola Screen: No symptoms or risks identified at this time. Initial Sepsis Screen: Does the patient meet any 2 criteria? HR > 90 bpm. No. Patient's initial sepsis screen is negative. Does the patient have a suspected source of infection? No. Patient's initial sepsis screen is negative. Risk Assessment: Do you want to hurt yourself or someone else? Patient reports no desire to harm self or others. Onset of symptoms is unknown. 11:49 Method Of Arrival: Ambulatory bp 11:49 Acuity: HERI 2 aa5 Triage Assessment: 11:51 General: Appears distressed, Behavior is cooperative, appropriate for age, anxious. bp Pain: Denies pain. EENT: No deficits noted. Neuro: No deficits noted. Cardiovascular: Rhythm is sinus tachycardia. Respiratory: No deficits noted. GI: Reports nausea, vomiting. : No signs and/or symptoms were reported regarding the genitourinary system. Derm: No deficits noted. Musculoskeletal: No deficits noted. Historical: - Allergies: 11:51 No Known Allergies; bp - PMHx: 11:51 Cancer; BREAST; bp - Immunization history:: Adult Immunizations up to date. - Social history:: Smoking status: Patient denies any tobacco usage or history of. Screenin:[address] [facility] ED Fall Risk Assessment (Adult) Score/Fall Risk Level 0 - 2 = Low Risk. Abuse eh3 screen: Denies threats or abuse. Denies injuries from another. Nutritional screening: No deficits noted. Tuberculosis screening: No symptoms or risk factors identified. Assessment: 12:04 General: Appears in no apparent distress. uncomfortable, Behavior is calm, cooperative, eh3 appropriate for age. Pain: Denies pain. Neuro: Level of Consciousness is awake, alert, obeys commands, Oriented to person, place, time, situation. Cardiovascular: Capillary refill < 3 seconds Patient's skin is warm and dry. Respiratory: Airway is patent Respiratory effort is even, unlabored, Respiratory pattern is regular, symmetrical. GI: Abdomen is flat, non-distended, Reports intolerance of fluids, intolerance of food, nausea, vomiting. : No signs and/or symptoms were reported regarding the genitourinary system. EENT: No signs and/or symptoms were reported regarding the EENT system. Derm: Skin is pale, Skin temperature is warm. Musculoskeletal: No signs and/or symptoms reported regarding the musculoskeletal system. 13:00 Reassessment: Patient appears in no apparent distress at this time. Patient and/or eh3 family updated on plan of care and expected duration. Pain level reassessed. Patient is alert, oriented x 3, equal unlabored respirations, skin warm/dry/pink. 14:00 Reassessment: Patient appears in no apparent distress at this time. Patient and/or eh3 family updated on plan of care and expected duration. Pain level reassessed. Patient is alert, oriented x 3, equal unlabored respirations, skin warm/dry/pink. 15:00 Reassessment: Patient appears in no apparent distress at this time. Patient and/or eh3 family updated on plan of care and expected duration. Pain level reassessed. Patient is alert, oriented x 3, equal unlabored respirations, skin warm/dry/pink. 15:30 Reassessment: Patient appears in no apparent distress at this time. Patient and/or eh3 family updated on plan of care and expected duration. Pain level reassessed. Patient is alert, oriented x 3, equal unlabored respirations, skin warm/dry/pink. Vital Signs: 11:49 BP 129 / 64; Pulse 147; Resp 18; Temp 97.6; Pulse Ox 97% ; bp 13:00 BP 118 / 75; Pulse 127; Resp 16; Pulse Ox 95% on R/A; eh3 14:00 BP 112 / 63; Pulse 128; Resp 16; Pulse Ox 95% on R/A; eh3 15:00 BP 112 / 69; Pulse 123; Resp 16; Pulse Ox 95% on R/A; eh3 16:20 BP 114 / 66 Sitting; Pulse 126; Resp 18; Pulse Ox 99% on R/A; eh3 16:22 BP 122 / 72 Supine; Pulse 125; Resp 18; Pulse Ox 97% on R/A; eh3 16:24 BP 107 / 70 Standing; Pulse 134; Resp 18; Pulse Ox 98% on R/A; eh3 ED Course: 11:32 Patient arrived in ED. ts1 11:51 Triage completed. bp 11:51 Arm band placed on. bp 11:59 Buffy Flores FNP-C is [facility]. snw 11:59 Isaiah Garcia MD is Attending Physician. snw 12:04 Patient has correct armband on for positive identification. Bed in low position. Call eh3 light in reach. Side rails up X2. Adult w/ patient. Pulse ox on. NIBP on. Door closed. Noise minimized. Lights dimmed. Warm blanket given. 12:46 Alize Ibrahim, BOAZ is Primary Nurse. eh3 13:00 Missed attempt(s): 22 gauge in right antecubital area. Bleeding controlled, band aid eh3 applied, catheter tip intact. 13:55 Inserted saline lock: 24 gauge in right hand, using aseptic technique. Blood collected. eh3 IV inserted by VASHTI Salguero. 17:30 No provider procedures requiring assistance completed. IV discontinued, intact, eh3 bleeding controlled, No redness/swelling at site. Pressure dressing applied. Administered Medications: 13:55 Drug: NS 0.9% IV 1000 ml Route: IV; Rate: 1 bolus; Site: right hand; eh3 16:00 Follow up: IV Status: Completed infusion; IV Intake: 1000ml eh3 13:55 Drug: Famotidine IVP 20 mg Route: IVP; Site: right hand; eh3 15:00 Follow up: Response: No adverse reaction eh3 15:20 Drug: NS 0.9% IV 500 ml Route: IV; Rate: bolus; Site: right hand; eh3 17:15 Follow up: IV Status: Completed infusion; IV Intake: 500ml eh3 Medication: 17:30 VIS not applicable for this client. eh3 Intake: 16:00 IV: 1000ml; Total: 1000ml. eh3 17:15 IV: 500ml; Total: 1500ml. eh3 Outcome: 17:19 Discharge ordered by . snw 17:30 Discharged to home ambulatory, with significant other. eh3 17:30 Condition: stable 17:30 Discharge instructions given to patient, Instructed on discharge instructions, follow up and referral plans. Demonstrated understanding of instructions, follow-up care. 17:38 Patient left the ED. eh3 Signatures: Buffy Flores, CERTIFIED HEALTH EDUCATION SPECIALIST-C CERTIFIED HEALTH EDUCATION SPECIALIST-Csnw Genesis Rosas, RN RN aa5 Vinnie Fang RN RN bp Alize Ibrahim RN RN eh3 Shannon Bhatia PAS PAS ts1 Corrections: (The following items were deleted from the chart) 12:01 11:49 Acuity: HERI 3 bp aa5
--- NOTE | 2022-08-13 17:19 | EDPHYS ---
Physician Documentation [facility] Name: Winter Cordon Age: 62 yrs Sex: Female : 1960 Arrival Date: 08/13/2022 Time: 11:30 Bed 13 Private MD: ED Physician Isaiah Garcia HPI: 08/13 12:33 This 62 yrs old Female presents to ER via Ambulatory with complaints of snw Nausea/Vomiting, Decreased Appetite. 12:33 The patient presents to the emergency department with nausea, vomiting, anorexia. snw Possible causes: Chemotherapy for breast ca. The patient has experienced a previous episode. spoke with Dr. Vera. Historical: - Allergies: 11:51 No Known Allergies; bp - PMHx: 11:51 Cancer; BREAST; bp - Immunization history:: Adult Immunizations up to date. - Social history:: Smoking status: Patient denies any tobacco usage or history of. ROS: 12:34 Eyes: Negative for injury, pain, redness, and discharge, ENT: Negative for injury, snw pain, and discharge, Neck: Negative for injury, pain, and swelling, Cardiovascular: Negative for chest pain, palpitations, and edema, Respiratory: Negative for shortness of breath, cough, wheezing, and pleuritic chest pain, Back: Negative for injury and pain. 12:34 : Negative for injury, bleeding, discharge, and swelling, MS/Extremity: Negative for injury and deformity, Skin: Negative for injury, rash, and discoloration. 12:34 Constitutional: Positive for fatigue, malaise, poor PO intake. 12:34 Abdomen/GI: Positive for nausea and vomiting, anorexia. 12:34 Neuro: Positive for weakness. Exam: 12:32 Head/Face: Normocephalic, atraumatic. snw 12:32 ENT: Nares patent. No nasal discharge, no septal abnormalities noted. Tympanic membranes are normal and external auditory canals are clear. Oropharynx with no redness, swelling, or masses, exudates, or evidence of obstruction, uvula midline. Mucous membranes moist. Neck: Trachea midline, no thyromegaly or masses palpated, and no cervical lymphadenopathy. Supple, full range of motion without nuchal rigidity, or vertebral point tenderness. No Meningismus. Chest/axilla: Normal chest wall appearance and motion. Nontender with no deformity. No lesions are appreciated. 12:32 Respiratory: Lungs have equal breath sounds bilaterally, clear to auscultation and percussion. No rales, rhonchi or wheezes noted. No increased work of breathing, no retractions or nasal flaring. Abdomen/GI: Soft, non-tender, with normal bowel sounds. No distension or tympany. No guarding or rebound. No evidence of tenderness throughout. Back: No spinal tenderness. No costovertebral tenderness. Full range of motion. MS/ Extremity: Pulses equal, no cyanosis. Neurovascular intact. Full, normal range of motion. 12:32 Neuro: Awake and alert, GCS 15, oriented to person, place, time, and situation. Cranial nerves II-XII grossly intact. Motor strength 5/5 in all extremities. Sensory grossly intact. Cerebellar exam normal. Normal gait. Psych: Awake, alert, with orientation to person, place and time. Behavior, mood, and affect are within normal limits. 12:32 Constitutional: The patient appears alert, anxious, frail, pale. 12:32 Eyes: Conjunctiva: pale, bilaterally. 12:32 Cardiovascular: Rate: tachycardic, Heart sounds: normal. 12:32 Skin: Appearance: Color: pale, Temperature: warm. Vital Signs: 11:49 BP 129 / 64; Pulse 147; Resp 18; Temp 97.6; Pulse Ox 97% ; bp 13:00 BP 118 / 75; Pulse 127; Resp 16; Pulse Ox 95% on R/A; eh3 14:00 BP 112 / 63; Pulse 128; Resp 16; Pulse Ox 95% on R/A; eh3 15:00 BP 112 / 69; Pulse 123; Resp 16; Pulse Ox 95% on R/A; eh3 16:20 BP 114 / 66 Sitting; Pulse 126; Resp 18; Pulse Ox 99% on R/A; eh3 16:22 BP 122 / 72 Supine; Pulse 125; Resp 18; Pulse Ox 97% on R/A; eh3 16:24 BP 107 / 70 Standing; Pulse 134; Resp 18; Pulse Ox 98% on R/A; eh3 Procedures: 14:03 Peripheral line: by aseptic technique a peripheral line was placed in the right hand snw vein. MDM: 12:03 Patient medically screened. snw 14:09 Differential diagnosis: medication side effect, dehydration. Data reviewed: vital snw signs, nurses notes. I considered the following discharge prescriptions or medication management in the emergency department Medications were administered in the Emergency Department. See MAR. Special discussion: Based on the history and exam findings, there is no indication for further emergent testing or inpatient evaluation. I discussed with the patient/guardian the need to see the skin lifter bacon/oncologist for further evaluation of the symptoms. 08/13 12:22 Order name: CBC with Diff; Complete Time: 14:24 snw 08/13 12:22 Order name: CMP; Complete Time: 14:30 snw 08/13 12:22 Order name: Magnesium; Complete Time: 14:30 snw 08/13 12:22 Order name: Phosphorus; Complete Time: 14:30 snw 08/13 12:22 Order name: Labs collected and sent; Complete Time: 13:16 snw 08/13 13:28 Order name: Labs - recollect needed: recollect all the blood all hemolyzed; Complete eb Time: 14:07 08/13 16:02 Order name: Orthostatic Blood Pressure; Complete Time: 16:26 mb9 Administered Medications: 13:55 Drug: NS 0.9% IV 1000 ml Route: IV; Rate: 1 bolus; Site: right hand; 3 16:00 Follow up: IV Status: Completed infusion; IV Intake: 1000ml eh3 13:55 Drug: Famotidine IVP 20 mg Route: IVP; Site: right hand; eh3 15:00 Follow up: Response: No adverse reaction 3 15:20 Drug: NS 0.9% IV 500 ml Route: IV; Rate: bolus; Site: right hand; eh3 17:15 Follow up: IV Status: Completed infusion; IV Intake: 500ml eh3 Disposition: 18:47 Co-signature as Attending Physician, Isaiah Garcia MD I reviewed the patient's care rn provided by the Advanced Practice Provider and agree with the diagnosis and treatment plan. Disposition Summary: 08/13/22 17:19 Discharge Ordered Location: Home snw Condition: Stable snw Diagnosis - Volume depletion, unspecified snw Followup: snw - With: Emergency Department - When: As needed - Reason: Worsening of condition Followup: snw - With: Private Physician - When: 2 - 3 days - Reason: Recheck today's complaints, Continuance of care, Re-evaluation by your physician Discharge Instructions: - Discharge Summary Sheet snw - Dehydration, Adult snw - High-Protein and High-Calorie Diet snw - Rehydration, Adult snw Forms: - Medication Reconciliation Form snw - Thank You Letter snw - Antibiotic Education snw Signatures: Dispatcher [employer] Buffy Christiansen, NIGHT STOCKER-C NIGHT STOCKER-Csnw Isaiah Garcia MD MD rn Peltier, Brian RN RN Farzana Dior Erin RN RN 3 Denise Graves RN RN [id number]
[2022-08-13 18:15] VITALS: TEMP 97.6
[2022-08-13 18:32] VITALS: BP 107/70; O2SAT 98
== END 2022-08-13 17:38 | disposition home or self-care (01) ==
LOC: ER 11:30
PROC: 05HG33Z Insertion of Infusion Device into Right Hand Vein, Percutaneous Approach (ICD-10-PCS; principal; 2022-08-13)
DX: E86.9 Volume depletion, unspecified (principal); C50.919 Malignant neoplasm of unspecified site of unspecified female breast
CPT/HCPCS: 96361; 85025; 36415; 83735; 84100; 80053; 96374; 99284; 36569; J7040; J7030

== ENCOUNTER 2022-09-03 03:06 | Inpatient (IN) | payer OTHER ==
--- OUTSIDE RECORDS SUMMARY | 2022-09-03 03:10 | XMS REPORT | Clinical Summary ---
:1960 Author Organization [facility] MD [facility] Address [address] [place] [address] Care Team Providers Name Role Phone Vinnie [...] Vaccination (#1) 1960 Results Not on fileafter 09/03/2021 Insurance Payer Benefit Plan / Subscriber ID Effective Dates Phone Addre ss Type Group [employer] MANAGED [employer] HMO [id number] 2007-Present [id number] [place] [address] [employer] HMO [id number] 2007-Present [id number] [place] [address] Care Teams Financial Consultant Relationship Specialty Start Date End Date Vinnie Franks MD PCP - External Referring Family Practice 9 Angie Sage MD PCP - General Cancer Prevention 06/06/[address] [place] [id number]
[2022-09-03 03:57] LABS: Absolute Lymphocytes (CBC) 0.4 K/uL (0.7-4.9); Hematocrit 27.3 % (36.0-45.0); Lymphocytes % 5.4 % (15.3-44.8); MCV 106.6 fL (80-100); MPV 8.8 fL (7.6-11.3); RBC Red Blood Cell Count 2.56 M/uL (3.86-4.86)
[2022-09-03] MEDS ORDERED: NA CHLORIDE 0.9% 500 ML ONE (03:59)
[2022-09-03] MEDS ORDERED: MORPHINE 4 MG/ML SYR ONE ×4 (03:59→09:20)
[2022-09-03] MEDS ORDERED: ONDANSETRON 4 MG/2 ML VIAL ONE (03:59)
[2022-09-03] MEDS ORDERED: NA CHLORIDE 0.9% 1,000 ML ONE ×2 (03:59→10:55)
[2022-09-03 04:04] LABS: Protime INR 1.09
[2022-09-03 04:13] LABS: Albumin 2.7 g/dL (3.4-5.0); Bilirubin Direct 0.3 mg/dL (0-0.2); Bilirubin Indirect, Calculated 0.4 mg/dL (0.2-0.8); Bilirubin Total 0.7 mg/dL (0.2-1.0); Potassium 3.7 mEq/L (3.5-5.1); Protein, Total 6.2 g/dL (6.4-8.2); Troponin High Sensitivity 6.6 pg/mL (<58.9)
[2022-09-03] MEDS ORDERED: ETOMIDATE 20 MG/10 ML VIAL IV ONE ×2 (04:36→20:55)
[2022-09-03] MEDS ORDERED: METOCLOPRAMIDE 10 MG/2mL INJ ONE (06:03)
[2022-09-03] MEDS ORDERED: NA CHLORIDE 0.9% 250 ML ONE (06:03)
[2022-09-03] MEDS ORDERED: NA CHLORIDE 0.9% 100 ML ONE (06:03)
[2022-09-03] MEDS ORDERED: VANCOMYCIN 1 GM/VIAL ONE (06:03)
[2022-09-03] MEDS ORDERED: PIPERACIL/TAZO 3.375 GM VIAL IV ONE (06:04)
[2022-09-03] MEDS ORDERED: ALBUMIN HUMAN 25% 200 ML IV ONE (06:04)
--- NOTE | 2022-09-03 06:08 | EDPHYS ---
Physician Documentation [facility] Name: Winter Cordon Age: 62 yrs Sex: Female : 1960 Arrival Date: 09/03/2022 Time: 03:06 Bed 3 Private MD: TRUONG Physician Isaiah Garcia HPI: 09/03 03:14 This 62 yrs old Female presents to ER via Unassigned with complaints of Arm sp4 Pain. 03:54 Patient is a very pleasant 62-year-old female immigrant from [place] who presents with sp4 bilateral arm pain starting on 2 days ago associated with decreased appetite, dry heaving, also persistent weight loss and generalized muscular pain secondary to her chemotherapy that she received on . Patient is being treated with fulvestrant, for left breast cancer. Patient states breast cancer is metastatic and her chemotherapy is basically palliative. Patient is being treated by Dr. Arin Vera with hematology oncology here in [place].. Review of old history reveals patient has recurrent breast cancer with metastatic spread. Patient was diagnosed with breast cancer 2001 and except for initial surgery all of her treatments were done in [place]. Breast cancer history is from January 2002. Patient was diagnosed with left breast cancer that is ER positive/MO positive/ Her 2 negative , status post modified radical mastectomy 4 cm mass with positive lymph nodes and adjuvant chemotherapy radiation therapy. However patient has refused all therapy. Patient then developed soft tissue mass in 2006 in the left anterior chest wall which was resected on 10/03/2006 . Resected mass revealed breast adenocarcinoma with metastatic spread. Patient was started on tamoxifen. Patient was also treated with letrozole. Patient was then diagnosed with retrosternal mass on June 2019. Patient was seen at [facility] for that but did not go back for work-up there. In July 2019 patient had resection of the retrosternal mass and that revealed TNBC. Patient received 4 cycles of carboplatin plus Doxil Taxol. In November 2019 PET scan revealed left 11th rib lesion. Patient's oncologist in [place] suspected progression and chemo changes changed to carboplatin plus gemcitabine and Doxil. Patient developed severe neutropenia and sepsis and was hospitalized in [place] in March 2020. Switch to capecitabine twice daily last PET scan in [place] 04/21/2020 with no evidence of disease.. Old records summary patient is a 62-year-old female with recurrent breast cancer stage IV metastatic breast cancer and incurable. Patient was started on palliative chemotherapy to prolong survival. Patient is being managed by Dr. Vera. In 2020 in May patient was on capecitabine. Also Casodex, , metformin, zinc and selenium. . Historical: - Allergies: 03:18 lidocaine (PF); kl - Home Meds: 03:24 tramadol 50 mg Oral tablet every 6 hours [Active]; kl - PMHx: 03:18 breast cancer; kl - PSHx: 03:18 None; kl - Immunization history:: Adult Immunizations not immunized. - Social history:: Smoking status: Patient denies any tobacco usage or history of. - Family history:: not pertinent. ROS: 04:13 Constitutional: Negative for fever, chills, positive for weight loss, generalized sp4 weakness, diffuse body aches, bilateral arm pain. Also positive for shortness of breath Eyes: Negative for injury, pain, redness, and discharge, ENT: Negative for injury, pain, and discharge, Neck: Negative for injury, pain, and swelling, Cardiovascular: Negative for chest pain, palpitations, and edema, Respiratory: Negative for cough, wheezing, and pleuritic chest pain, positive for dyspnea. Abdomen/GI: Negative for abdominal pain, nausea, vomiting, diarrhea, and constipation, Back: Negative for injury and pain, : Negative for injury, bleeding, discharge, and swelling, MS/Extremity: Negative for injury and deformity, positive for diffuse body aches and bilateral arm pain Skin: Negative for injury, rash, and discoloration, Neuro: Negative for headache, weakness, numbness, tingling, and seizure, Psych: Negative for depression, anxiety, Allergy/Immunology: Negative for hives, rash, and allergies Endocrine: Negative for neck swelling, polydipsia, polyuria, polyphagia, and weight changes Hematologic/Lymphatic: Negative for swollen nodes, abnormal bleeding, and unusual bruising Exam: 04:13 Constitutional: This is a well developed, well nourished patient who is awake, alert, sp4 ill-appearing female, tachycardic, toxic appearing, cachectic female signs of diffuse muscle atrophy and physical deconditioning. Signs of significant weight loss. Signs of moderate dehydration. Head/Face: Normocephalic, atraumatic. Eyes: Pupils equal round and reactive to light, extra-ocular motions intact. Lids and lashes normal. Conjunctiva and sclera are not injected. Cornea within normal limits. Periorbital areas with no swelling, redness, or edema. ENT: Nares patent. No nasal discharge, no septal abnormalities noted. Tympanic membranes are normal and external auditory canals are clear. Oropharynx with no redness, swelling, or masses, exudates, or evidence of obstruction, uvula midline. Mucous membranes moist. Neck: Trachea midline, no thyromegaly or masses palpated, and no cervical lymphadenopathy. Supple, full range of motion without nuchal rigidity, or vertebral point tenderness. Chest/axilla: Normal chest wall appearance and motion. Nontender with no deformity. No lesions are appreciated. Cardiovascular: Regular rate and rhythm with a normal S1 and S2. No gallops, murmurs, or rubs. Normal PMI, no JVD. No pulse deficits. Respiratory: Lungs -diminished breath sounds in the right thorax, positive breath sounds in the left side dullness to percussion on the right side there is tachypnea and dyspnea increased work of breathing, also some retractions. Patient is hypoxemic on arrival at 88% on room air Abdomen/GI: Soft, non-tender, with normal bowel sounds. No distension or tympany. No guarding or rebound. No evidence of tenderness throughout. Back: No spinal tenderness. No costovertebral tenderness. Skin: Warm, dry with normal turgor. Normal color with no rashes, no lesions, and no evidence of cellulitis. MS/ Extremity: Pulses equal, no cyanosis. Neurovascular intact. Full, normal range of motion. Neuro: Awake and alert, GCS 15, oriented to person, place, time, and situation. Cranial nerves II-XII grossly intact. Motor strength 5/5 in all extremities. Sensory grossly intact. Psych: Awake, alert, with orientation to person, place and time. Behavior, mood, and affect are within normal limits 04:13 ECG was reviewed by the Attending Physician. EKG time 0 3038, there is sinus sp4 tachycardia at the rate of 124, no ST elevation or depression. Nonspecific T wave abnormality otherwise normal EKG. There is no ectopy Vital Signs: 03:16 BP 132 / 77; Pulse 139; Resp 20; Pulse Ox 92% on R/A; Weight 47.17 kg; Height 5 ft. 2 kl in. ; Pain 10/10; 03:56 BP 117 / 73; Pulse 121; Resp 23; Pulse Ox 97% on 2 lpm NC; lg3 05:30 BP 127 / 79; Pulse 131; Resp 19; Pulse Ox 99% on 2 lpm NC; jb4 06:49 BP 117 / 78; Pulse 133; Resp 19; Pulse Ox 98% on 2 lpm NC; jb4 07:58 BP 125 / 72; Pulse 133; Resp 16; Pulse Ox 97% on 2 lpm NC; ko1 09:22 BP 146 / 75; Pulse 152; Resp 29; Pulse Ox 90% on BiPAP; ph 10:03 BP 133 / 83; Pulse 156; Resp 24; Pulse Ox 89% on BiPAP; ph 11:05 BP 86 / 62; Pulse 140; Resp 18; Pulse Ox 96% on 100% FiO2 ETT vent; ph 11:31 BP 78 / 62; Pulse 131; Resp 14; Pulse Ox 99% on 100% FiO2 ETT vent; ph 03:16 Body Mass Index 19.02 (47.17 kg, 157.48 cm) kl 03:16 Pain Scale: Adult kl Procedures: 05:58 Chest tube insertion: the site was prepped using Betadine, in sterile fashion, Tube sp4 size: a 20 nepalese chest tube was inserted, introduced in right lateral chest wall, in the right lateral posterior chest, right lateral chest wall fifth intercostal space mid axillary line, to pleur-e-vac, dressed with vaseline gauze, foam tape, 4x4s, the patient tolerated the procedure well, Size 20 chest tube advanced 14 cm , estimated 2 L serous to slightly bloody pleural fluid evacuated into Pleur-evac. Patient's reported improved respirations. . 10:49 Intubation: Ventilated with 100% NRB prior to procedure. O2 saturation prior to television journalist was 80 %. Intubated orally using # 4 Donta blade with 7.5 mm ETT. was successful on first attempt. Cricoid pressure applied during procedure. Tube secured at right side of mouth measured 23 cm at lip. Placement verified by O2 saturation after procedure was 99 %. Patient tolerated well. 11:05 Central Line: the site was prepped with Betadine, in sterile fashion, a triple lumen rn catheter was inserted, in the right femoral vein, in 1 attempts. placement was verified, by blood return, the site was dressed with Tegaderm, using sterile technique, the patient tolerated the procedure, well. MDM: 05:40 ED course: CLINICAL HISTORY: pleural effusion COMPARISON: None. TECHNIQUE: CT sp4 CHESTABDOMEN PELVIS WITHOUT IV CONTRAST on 09/03/2022 4:10 AM CDT This exam was performed according to our departmental dose-optimization program, which includes automated exposure control, adjustment of the mA and/or kV according to patient size and/or use of iterative reconstruction technique. FINDINGS: Chest: The heart is normal in size. There is no pericardial effusion. Intrathoracic lymph nodes are not enlarged. There is a large right pleural effusion. There is soft tissue nodularity of the posterior right pleural space with thickness up to 1.5 cm. There is a small left pleural effusion. The bronchus intermedius is occluded. There is near complete atelectasis of the right lung. There is minimal nodular airspace disease in the medial aspect of the left lower lobe superiorly. Abdomen: There are innumerable metastatic lesions throughout the liver measuring up to 4 cm. These are ill-defined and replaced approximately 30% of the liver parenchyma. There is no biliary dilatation. Gallbladder is not clearly seen. The pancreas and spleen are normal in appearance. The adrenal glands and kidneys are unremarkable. Abdominal aorta is normal in course and caliber without aneurysm. There is no free air. There are multiple enlarged left para-aortic lymph nodes measuring up to 2.5 cm. Pelvis: There is no bowel obstruction. Urinary bladder is unremarkable. There is small amount of free pelvic fluid. Uterus is poorly seen. Appendix is not clearly seen. Skeleton: There are no acute osseous findings. No suspicious bony lesions. IMPRESSION: Large right pleural effusion with soft tissue nodularity, suggesting a malignant effusion. Small left pleural effusion. Near complete atelectasis of the right lung with occlusion of bronchus intermedius. Underlying right basilar pulmonary mass is suspected. Metastatic disease throughout the liver and likely the left retroperitoneum. . 05:52 Patient medically screened. sp4 05:58 Differential diagnosis: Malignant pleural effusion, loculated pleural effusion, sp4 pneumonia, pneumothorax, hemothorax, postobstructive pneumonia. Data reviewed: vital signs, nurses notes, old medical records, lab test result(s), cardiac enzymes, CBC, drug level(s), hepatic panel, EKG, radiologic studies, CT scan, plain films. Consideration of Admission/Observation Escalation of care including admission/observation considered. 06:03 ED course: TECHNIQUE: XR CHEST 1 VIEW 09/03/2022 3:23 AM CDT FINDINGS: The heart is sp4 slightly enlarged. There is only partial aeration of the right upper lobe with extensive right lung atelectasis. There is platelike atelectasis in the mid left lung. There is a large right pleural effusion. There may be small left pleural effusion. There is no pneumothorax. There are no acute osseous findings. IMPRESSION: Large right pleural effusion with near complete right lung atelectasis. . ED course: Patient was consented for moderate sedation and chest tube insertion after chest tube insertion approximately 2 L of pleural fluid initially straw-colored and mildly bloody evacuated from the chest cavity. Patient's respirations have improved after chest tube insertion. Patient at this time warrants admission for chest tube management, postobstructive pneumonia, and further management inside the hospital. . 06:34 ED course: EXAM: XR Chest, 1 View CLINICAL HISTORY: The patient is 62 years old and is sp4 Female; Right chest tube placement TECHNIQUE: Single view of the chest. COMPARISON: September 03, 2022. FINDINGS: Lungs: Airspace opacities in the right middle and right lower lobe. Subsegmental atelectasis left lung base. Pleural space: Small left pleural effusion. Heart: Unremarkable. No cardiomegaly. Mediastinum: Unremarkable. Bones/joints: The bones and joints are unchanged as visualized. Tubes, lines and devices: Right chest tube has been placed. Pleural effusion is markedly decreased in size. Basilar pneumothorax visualized, at least 30% volume. Upper abdomen: No free air in the visualized upper abdomen. IMPRESSION: 1. Right chest tube has been placed. Pleural effusion is markedly decreased in size. Basilar pneumothorax visualized, at least 30% volume. 2. Airspace opacities in the right middle and right lower lobe. Subsegmental atelectasis left lung base. . 10:49 ED course: Evgeny Velasco and Hussein requested that patient be intubated, intubated by dillan roth, with glidescope, single pass, tolerated well and O2 sat 99%. . 11:06 Response to treatment: the patient's symptoms have mildly improved after treatment, and rn as a result, I will admit patient. 11:06 ED course: Pt began to decompensate while still in ER, I accepted care from Dr. dillan Pineda and admitting team had not yet evaluated patient. I intubated patient and placed central line after consultation with Dr. Pepper, Dr. Sanders, and Dr. Savage. Vitals have improved. Updated family. . 09/03 03:23 Order name: Basic Metabolic Panel; Complete Time: 04:50 sp4 09/03 03:23 Order name: CBC with Diff; Complete Time: 04:50 sp4 09/03 03:23 Order name: LFT's; Complete Time: 04:50 sp4 09/03 03:23 Order name: Magnesium; Complete Time: 04:50 sp4 09/03 03:23 Order name: NT PRO-BNP; Complete Time: 04:50 sp4 09/03 03:23 Order name: PT-INR; Complete Time: 04:50 sp4 09/03 03:23 Order name: Troponin HS; Complete Time: 04:50 sp4 09/03 05:42 Order name: Blood Culture Adult (2) sp4 09/03 09:05 Order name: CBC with Diff; Complete Time: 11:35 ph 09/03 10:47 Order name: CBC with Automated Diff EDMS 09/03 10:47 Order name: CBC with Automated Diff EDMS 09/03 10:47 Order name: Comprehensive Metabolic Panel EDMS 09/03 10:47 Order name: Comprehensive Metabolic Panel EDMS 09/03 10:47 Order name: Magnesium EDMS 09/03 10:47 Order name: Magnesium EDMS 09/03 10:47 Order name: Phosphorus EDMS 09/03 10:47 Order name: Phosphorus EDMS 09/03 10:56 Order name: CBC Smear Scan; Complete Time: 11:35 EDMS 09/03 11:09 Order name: ABG eb 09/03 03:23 Order name: XRAY Chest (1 view) sp4 09/03 04:10 Order name: CT Chest Abdomen Pelvis W/O Contrast sp4 09/03 05:32 Order name: Chest Single View XRAY sp4 09/03 08:30 Order name: XRAY Chest (1 view); Complete Time: 10:03 ss 09/03 10:37 Order name: Abdomen 1 View (KUB) EDMS 09/03 10:37 Order name: Chest Single View EDMS 09/03 10:37 Order name: Chest Single View EDMS 09/03 10:37 Order name: Chest Single View EDAK 09/03 10:37 Order name: Chest Single View [facility] 09/03 11:32 Order name: XRAY Chest (1 view) rn 09/03 03:23 Order name: EKG; Complete Time: 03:49 sp4 09/03 10:36 Order name: Respiratory Therapy Consult [facility] 09/03 10:47 Order name: NPO EDAK 09/03 03:23 Order name: Cardiac monitoring; Complete Time: 03:47 sp4 09/03 03:23 Order name: EKG - Nurse/Tech; Complete Time: 03:47 sp4 09/03 03:23 Order name: IV Saline Lock; Complete Time: 03:47 sp4 09/03 03:23 Order name: Labs collected and sent; Complete Time: 03:47 sp4 09/03 03:23 Order name: O2 Per Protocol; Complete Time: 03:47 sp4 09/03 03:23 Order name: O2 Sat Monitoring; Complete Time: 03:47 sp4 09/03 04:11 Order name: Moderate Sedation; Complete Time: 05:39 sp4 09/03 09:29 Order name: Labs - recollect needed: recollect cbc hemolyzed; Complete Time: 10:02 eb EC:13 Rate is 124 beats/min. Rhythm is regular, Sinus tachycardia. QRS [place] is Normal. MO sp4 interval is normal. QRS interval is normal. QT interval is normal. No ST changes noted. Clinical impression: No evidence of ischemia. Interpreted by me. Administered Medications: 04:01 Drug: morphine IVP or IV 4 mg Route: IVP; Infused Over: 4 mins; Site: right forearm; jb4 07:56 Follow up: Response: No adverse reaction ko1 04:01 Drug: Ondansetron IVP 4 mg Route: IVP; Site: right forearm; jb4 07:56 Follow up: Response: No adverse reaction ko1 04:02 Drug: NS 0.9% IV 1000 ml Route: IV; Rate: 125 ml/hr; Site: right forearm; jb4 04:02 Drug: NS 0.9% IV 500 ml Route: IV; Rate: bolus; Site: right forearm; jb4 04:45 Follow up: Response: No adverse reaction; IV Status: Completed infusion; IV Intake: jb4 500ml 04:57 Drug: Etomidate IVP 5 mg Route: IVP; Site: right forearm; jb4 05:01 Drug: Etomidate IVP 5 mg Route: IVP; Site: right forearm; jb4 05:06 Drug: Etomidate IVP 5 mg Route: IVP; Site: right forearm; jb4 05:08 Drug: Etomidate IVP 5 mg Route: IVP; Site: right forearm; jb4 07:56 Follow up: Response: No adverse reaction ko1 05:17 Drug: morphine IVP or IV 4 mg Route: IVP; Infused Over: 4 mins; Site: right forearm; jb4 07:55 Follow up: Response: No adverse reaction; Pain is decreased ko1 05:23 Drug: morphine IVP or IV 4 mg Route: IVP; Infused Over: 4 mins; Site: right forearm; jb4 07:55 Follow up: Response: No adverse reaction; Pain is decreased ko1 06:28 Drug: Piperacillin-Tazobactam IVPB 3.375 grams Route: IVPB; Infused Over: 60 mins; jb4 Site: right hand; 07:30 Follow up: Response: No adverse reaction; IV Status: Completed infusion; IV Intake: ko1 100ml 06:40 Drug: Albumin IVPB 25 grams Volume: 100 ml; Route: IVPB; Site: right forearm; jb4 07:55 Follow up: Response: No adverse reaction; IV Status: Completed infusion; IV Intake: [id number] 06:46 Drug: metoCLOPramide IVP 10 mg Route: IVP; Site: right forearm; jb4 07:55 Follow up: Response: No adverse reaction ko1 07:17 Drug: Albumin IVPB 25 grams Volume: 100 ml; Route: IVPB; Site: left forearm; ko1 07:56 Follow up: IV Status: Completed infusion; IV Intake: 50ml ko1 07:18 Drug: vancoMYCIN IVPB 1 grams Route: IVPB; Infused Over: 2 hrs; Site: right hand; ko1 09:21 Follow up: Response: No adverse reaction; IV Status: Completed infusion ph 09:09 Drug: NS 0.9% IV 500 ml Route: IV; Rate: bolus; Site: right forearm; ph 11:29 Follow up: Response: No adverse reaction; IV Status: Completed infusion ph 09:21 Drug: morphine IVP or IV 4 mg Route: IVP; Infused Over: 4 mins; Site: right hand; ph 11:29 Follow up: Response: No adverse reaction ph 10:43 Drug: Etomidate IVP 20 mg Route: IVP; Site: left forearm; ph 12:00 Follow up: Response: No adverse reaction ph 10:43 Drug: Succinylcholine IVP 100 mg Route: IVP; Site: right forearm; ph 12:00 Follow up: Response: No adverse reaction ph 10:50 Drug: NS 0.9% IV 500 ml Route: IV; Rate: bolus; Site: right wrist; ph 11:28 Follow up: Response: No adverse reaction; IV Status: Completed infusion; IV Intake: ph 500ml 11:45 Drug: Norepinephrine IV 4.717 mcg/min Route: IV; Rate: calculated rate; Site: right ph femoral; 11:59 Follow up: Response: No adverse reaction; IV Status: Infusion continued upon admission ph 12:00 Not Given (Other Intervention Used): HYDROmorphone IVP 1 mg IVP once ph Disposition Summary: 09/03/22 06:06 Hospitalization Ordered Hospitalization Status: Inpatient Admission sp4 Provider: Dylan Savage sp4 Condition: Stable sp4 Problem: new sp4 Symptoms: have improved sp4 Bed/Room Type: Standard sp4 Location: Intensive Care Unit(09/03/22 10:50) dw Room Assignment: 2-(09/03/22 10:50) Diagnosis - Malignant pleural effusion sp4 - Metastatic breast cancer, right malignant pleural effusion, acute dyspnea, sp4 hypoxemia, postobstructive pneumonia, occlusion of right bronchus intermedius, right basilar pulmonary mass, stage IV breast cancer, - Cancer pain, metastatic lesions in the liver, sp4 Forms: - Medication Reconciliation Form sp4 - SBAR form sp4 Critical care time excluding procedures: 11:06 Critical care time: Bedside Care: 35 minutes, Consultation: 5 minutes, Family rn Intervention: 5 minutes. Total time: 45 minutes Signatures: Dispatcher [employer] Elmira Dumont RN RN kl Woody, Diana, RN RN dw Nieto, Roman, MD MD rn Hall, Patricia, RN RN ph Bryson, James, RN RN jb4 Farzana Bee Kathy, RN RN ko1 Potepalov, Sergey, MD MD sp4 Corrections: (The following items were deleted from the chart) 03:18 03:18 PMHx: Cancer; BREAST; kl kl 10:50 06:06 Telemetry/MedSurg (Inpatient) sp4 dw 10:50 06:06 sp4 dw
--- NOTE | 2022-09-03 06:08 | ER ---
Nurse's Notes [facility] Name: Winter Cordon Age: 62 yrs Sex: Female : 1960 Arrival Date: 09/03/2022 Time: 03:06 Bed 3 Private MD: Diagnosis: Malignant pleural effusion;Metastatic breast cancer, right malignant pleural effusion, acute dyspnea, hypoxemia, postobstructive pneumonia, occlusion of right bronchus intermedius, right basilar pulmonary mass, stage IV breast cancer,;Cancer pain, metastatic lesions in the liver, Presentation: 09/03 03:16 Chief complaint: Patient states: bilateral arm pain s/p cancer treatment reports side kl effect of medication is long bone pain given R of Tramadol reports little relief. Coronavirus screen: Vaccine status: Patient reports being unvaccinated. Ebola Screen: Patient negative for fever greater than or equal to 101.5 degrees Fahrenheit, and additional compatible Ebola Virus Disease symptoms. Initial Sepsis Screen: Does the patient meet any 2 criteria? HR > 90 bpm. Does the patient have a suspected source of infection? No. Patient's initial sepsis screen is negative. Risk Assessment: Do you want to hurt yourself or someone else? Patient reports no desire to harm self or others. 03:16 Method Of Arrival: Ambulatory kl 03:16 Acuity: HERI 3 kl 11:07 Onset of symptoms was September 03, 2022. ko1 Triage Assessment: 03:18 General: Appears uncomfortable, ill, slender, Behavior is cooperative. Pain: Complains kl of pain in right arm and left arm Pain currently is 10 out of 10 on a pain scale. Historical: - Allergies: 03:18 lidocaine (PF); kl - Home Meds: 03:24 tramadol 50 mg Oral tablet every 6 hours [Active]; kl - PMHx: 03:18 breast cancer; kl - PSHx: 03:18 None; kl - Immunization history:: Adult Immunizations not immunized. - Social history:: Smoking status: Patient denies any tobacco usage or history of. - Family history:: not pertinent. Screenin:28 [facility] ED Fall Risk Assessment (Adult) History of falling in the last 3 months, lg3 including since admission No falls in past 3 months (0 pts). Abuse screen: Denies threats or abuse. Denies injuries from another. Nutritional screening: No deficits noted. Tuberculosis screening: No symptoms or risk factors identified. Assessment: 03:28 General: Appears in no apparent distress. uncomfortable, Behavior is calm, cooperative. lg3 Pain: Complains of pain in left arm and right arm Noted to be guarding, resistant to movement. Neuro: No deficits noted. Aranda Agitation-Sedation Scale (RASS): 0 - Alert and Calm Level of Consciousness is awake, alert, obeys commands, Oriented to person, place, time, situation. Cardiovascular: No deficits noted. Denies chest pain, shortness of breath, Capillary refill < 3 seconds Clubbing of nail beds is absent JVD is absent Patient's skin is warm and dry. Rhythm is sinus tachycardia. Respiratory: No deficits noted. Airway is patent Respiratory effort is even, unlabored, Respiratory pattern is regular, symmetrical. GI: No deficits noted. No signs and/or symptoms were reported involving the gastrointestinal system. Abdomen is flat, distended. : No deficits noted. No signs and/or symptoms were reported regarding the genitourinary system. EENT: No deficits noted. No signs and/or symptoms were reported regarding the EENT system. Derm: Skin is intact, is thin, Skin is dry, Skin is pale, Skin temperature is warm. Musculoskeletal: Circulation, motion, and sensation intact. Range of motion: intact in all extremities, Reports pain in right arm and left arm. 04:30 Reassessment: Pt resting in bed, respirations are even, labored, and tachypneic, jb4 remains at the bedside. 05:45 Reassessment: Pt is now awake after conscious sedation. Denies pain at this time, jb4 respirations are now even and unlabored with no s/s of distress noted. 06:46 Reassessment: Pt is now resting in bed with eyes closed, respirations are even and jb4 unlabored with no s/s of pain or distress noted. 07:41 Reassessment: Patient appears in no apparent distress at this time. No changes from ko1 previously documented assessment. Patient and/or family updated on plan of care and expected duration. Pain level reassessed. 08:15 Reassessment: Called Dr. Savage and informed him of patients worsening condition and ss need for admission orders to ICU. O2 83% on 6L NC and HR 140 Dr. Savage states that he will be down soon to discuss with patient and family code status. No new orders given. Paged RT to be at bedside for possible intervention. 08:30 Reassessment: OK per Dr. Garcia to order STAT chest XRAY now while we wait on Dr. Savage ss give further orders. 08:32 Reassessment: Patient sats decreased into low 80's increased to NRB mask, repositioned ko1 in bed and encouraged patient to cough. Dr Savage notified, orders received. 08:45 Reassessment: Called Dr. Savage again, states he will be at bedside momentarily. ss 08:50 Reassessment: Dr Savage and RT at bedside, pt placed on low pressure bi-pap w/ minimal ph improvement, pt agrees to be intubated if needed, new drainage chamber connected to chest tube, aprox 1850 bloody fluid noted in pprevious draiange chamber. 09:20 Reassessment: verbal order received for IV morphine 4mg per Dr Savage. ph 10:02 Reassessment: DR Sanders at bedside to speak w/ pt and SO. ph 11:03 Reassessment: Dr Garcia at bedside for central line placement. ph Vital Signs: 03:16 BP 132 / 77; Pulse 139; Resp 20; Pulse Ox 92% on R/A; Weight 47.17 kg; Height 5 ft. 2 kl in. ; Pain 10/10; 03:56 BP 117 / 73; Pulse 121; Resp 23; Pulse Ox 97% on 2 lpm NC; lg3 05:30 BP 127 / 79; Pulse 131; Resp 19; Pulse Ox 99% on 2 lpm NC; jb4 06:49 BP 117 / 78; Pulse 133; Resp 19; Pulse Ox 98% on 2 lpm NC; jb4 07:58 BP 125 / 72; Pulse 133; Resp 16; Pulse Ox 97% on 2 lpm NC; ko1 09:22 BP 146 / 75; Pulse 152; Resp 29; Pulse Ox 90% on BiPAP; ph 10:03 BP 133 / 83; Pulse 156; Resp 24; Pulse Ox 89% on BiPAP; ph 11:05 BP 86 / 62; Pulse 140; Resp 18; Pulse Ox 96% on 100% FiO2 ETT vent; ph 11:31 BP 78 / 62; Pulse 131; Resp 14; Pulse Ox 99% on 100% FiO2 ETT vent; ph 03:16 Body Mass Index 19.02 (47.17 kg, 157.48 cm) kl 03:16 Pain Scale: Adult kl ED Course: 03:07 Patient arrived in ED. ag3 03:14 Jasvir Pineda MD is Attending Physician. sp4 03:18 Triage completed. kl 03:28 Patient has correct armband on for positive identification. Placed in gown. Bed in low lg3 position. Call light in reach. Side rails up X 1. Client placed on continuous cardiac and pulse oximetry monitoring. NIBP monitoring applied. clinical research monitor on. Door closed. Noise minimized. Warm blanket given. Family accompanied patient. 03:45 Inserted saline lock: 14 gauge in right forearm, using aseptic technique. Blood jb4 collected. 03:47 Eagle Bah, RN is Primary Nurse. jb4 04:00 Arm band placed on right wrist. lg3 04:08 XRAY Chest (1 view) In Process Unspecified. EDMS 04:41 CT Chest Abdomen Pelvis W/O Contrast In Process Unspecified. EDMS 05:15 Assist provider with chest tube insertion with 20 Fr. in right chest wall. Tray was set jb4 up. Attached to pleur-e-vac. Chest tube inserted by Jasvir Pineda MD Placement verified by CXR, fluctuation of fluid, Dressed with Vaseline gauze, foam tape, 4X4s, Patient tolerated well. 05:53 Chest Single View XRAY In Process Unspecified. EDMS 06:05 Dylan Savage is Hospitalizing Provider. sp4 08:44 XRAY Chest (1 view) In Process Unspecified. EDMS 10:45 Assisted provider with intubation using 7.5 mm ETT via oral route. ET tube secured at ph 23cm at the teeth. Set up intubation tray. Intubated by Isaiah Garcia MD Placement verified by CO2 detector w/ + color change, auscultating bilateral breath sounds, Patient tolerated Sedated. 11:04 Assisted provider with central line placement. Set up central line tray. Triple lumen ph line placed in right femoral. Line placed by Isaiah Garcia MD Placement verified by CXR, blood return, Dressed with Tape, Tegaderm, Patient tolerated well. NGT: inserted 16 Fr. other via oral route verified placement of air over stomach. Patient admitted, IV remains in place. 11:06 Attending Physician role handed off by Jasvir Pineda MD rn 11:06 Isaiah Garcia MD is Attending Physician. rn 11:40 Slade cath inserted, using sterile technique, 16 Fr., by hi, balloon inflated, to ss gravity drainage. Administered Medications: 04:01 Drug: morphine IVP or IV 4 mg Route: IVP; Infused Over: 4 mins; Site: right forearm; jb4 07:56 Follow up: Response: No adverse reaction ko1 04:01 Drug: Ondansetron IVP 4 mg Route: IVP; Site: right forearm; jb4 07:56 Follow up: Response: No adverse reaction ko1 04:02 Drug: NS 0.9% IV 1000 ml Route: IV; Rate: 125 ml/hr; Site: right forearm; jb4 04:02 Drug: NS 0.9% IV 500 ml Route: IV; Rate: bolus; Site: right forearm; jb4 04:45 Follow up: Response: No adverse reaction; IV Status: Completed infusion; IV Intake: jb4 500ml 04:57 Drug: Etomidate IVP 5 mg Route: IVP; Site: right forearm; jb4 05:01 Drug: Etomidate IVP 5 mg Route: IVP; Site: right forearm; jb4 05:06 Drug: Etomidate IVP 5 mg Route: IVP; Site: right forearm; jb4 05:08 Drug: Etomidate IVP 5 mg Route: IVP; Site: right forearm; jb4 07:56 Follow up: Response: No adverse reaction ko1 05:17 Drug: morphine IVP or IV 4 mg Route: IVP; Infused Over: 4 mins; Site: right forearm; jb4 07:55 Follow up: Response: No adverse reaction; Pain is decreased ko1 05:23 Drug: morphine IVP or IV 4 mg Route: IVP; Infused Over: 4 mins; Site: right forearm; jb4 07:55 Follow up: Response: No adverse reaction; Pain is decreased ko1 06:28 Drug: Piperacillin-Tazobactam IVPB 3.375 grams Route: IVPB; Infused Over: 60 mins; jb4 Site: right hand; 07:30 Follow up: Response: No adverse reaction; IV Status: Completed infusion; IV Intake: ko1 100ml 06:40 Drug: Albumin IVPB 25 grams Volume: 100 ml; Route: IVPB; Site: right forearm; jb4 07:55 Follow up: Response: No adverse reaction; IV Status: Completed infusion; IV Intake: [id number] 06:46 Drug: metoCLOPramide IVP 10 mg Route: IVP; Site: right forearm; jb4 07:55 Follow up: Response: No adverse reaction ko1 07:17 Drug: Albumin IVPB 25 grams Volume: 100 ml; Route: IVPB; Site: left forearm; ko1 07:56 Follow up: IV Status: Completed infusion; IV Intake: 50ml ko1 07:18 Drug: vancoMYCIN IVPB 1 grams Route: IVPB; Infused Over: 2 hrs; Site: right hand; ko1 09:21 Follow up: Response: No adverse reaction; IV Status: Completed infusion ph 09:09 Drug: NS 0.9% IV 500 ml Route: IV; Rate: bolus; Site: right forearm; ph 11:29 Follow up: Response: No adverse reaction; IV Status: Completed infusion ph 09:21 Drug: morphine IVP or IV 4 mg Route: IVP; Infused Over: 4 mins; Site: right hand; ph 11:29 Follow up: Response: No adverse reaction ph 10:43 Drug: Etomidate IVP 20 mg Route: IVP; Site: left forearm; ph 12:00 Follow up: Response: No adverse reaction ph 10:43 Drug: Succinylcholine IVP 100 mg Route: IVP; Site: right forearm; ph 12:00 Follow up: Response: No adverse reaction ph 10:50 Drug: NS 0.9% IV 500 ml Route: IV; Rate: bolus; Site: right wrist; ph 11:28 Follow up: Response: No adverse reaction; IV Status: Completed infusion; IV Intake: ph 500ml 11:45 Drug: Norepinephrine IV 4.717 mcg/min Route: IV; Rate: calculated rate; Site: right ph femoral; 11:59 Follow up: Response: No adverse reaction; IV Status: Infusion continued upon admission ph 12:00 Not Given (Other Intervention Used): HYDROmorphone IVP 1 mg IVP once ph Medication: 11:01 VIS not applicable for this client. ko1 Intake: 04:45 IV: 500ml; Total: 500ml. jb4 07:30 IV: 100ml; Total: 600ml. ko1 07:55 IV: 50ml; Total: 650ml. ko1 07:56 IV: 50ml; Total: 700ml. ko1 11:28 IV: 500ml; Total: 1200ml. ph Outcome: 06:06 Decision to Hospitalize by Provider. sp4 11:01 Admitted to ICU accompanied by nurse, via stretcher, room 2, with oxygen, on monitor, ko1 with chart. 11:01 critical 11:01 Instructed on the need for admit. 11:07 Admitted to ICU Report called to BOAZ Luque ko1 12:00 Patient left the ED. ph Signatures: Dispatcher [employer] EDMS Elmira Jha RN Isaiah Garza MD MD rn Blanchard, Shelby, RN RN ss Hall, Patricia RN Eagle Flood ph, RN RN [email or web address] Loretta Welodn 3 Brittany Fernandez RN RN lg3 Meredith Fraser RN RN ko1 Jasvir Pineda MD MD sp4 Corrections: (The following items were deleted from the chart) 03:18 03:18 PMHx: Cancer; BREAST; kl kl 09:07 08:15 Reassessment: Called Dr. Savage and informed him of patients worsening condition. ss O2 83% on 6L NC and HR 140 Dr. Savage states that he will be down soon to discuss with patient and family code status. No new further orders given 09:08 08:15 Reassessment: Called Dr. Savage and informed him of patients worsening condition. ss O2 83% on 6L NC and HR 140 Dr. Savage states that he will be down soon to discuss with patient and family code status. No new further orders given. Paged RT to be at bedside for possible intervention ss 11:14 11:01 Instructed on the need for admit, ko1 ko1 11:59 11:52 Norepinephrine IV 0.1 mcg/kg/min IV at calculated rate in right femoral ph ph
[2022-09-03] MEDS ORDERED: HYDROMORPHONE HCL 1 MG/ML INJ ONE (08:46)
--- NOTE | 2022-09-03 09:01 | RAD REPORT ---
EXAM DESCRIPTION: RADChest Single View09/03/2022 8:42 am CLINICAL HISTORY: chest tube;SOB COMPARISON: Chest Single View dated 09/03/2022; Chest Single View dated 09/03/2022; CHEST SINGLE VIEW da majo 11/03/2010; CHEST PA AND LAT 2 VIEW dated 07/29/2010 TECHNIQUE: Portable AP view of the chest. FINDINGS: Right basilar thoracostomy tube unchanged in position. Increased air within the right ches t wall and lower right neck soft tissues. Decreasing right basilar pneumothorax. Component of effusio n on the right may have slightly increased in size. Progressive opacification throughout the right kamilah ng. Patchy left basilar and perihilar opacification appears mildly progressive as well. The cardiomed iastinal contours are unchanged. IMPRESSION: Right hydropneumothorax with decreasing pneumothorax component and increasing effusion c omponent. Progressive perihilar, left basilar, and right lung opacities, could reflect worsening congestion/flu id overload, although superimposed right lung atelectasis or airspace disease should be considered.
[2022-09-03] MEDS ORDERED: RSI MEDICATION KIT IV ONE (09:03)
[2022-09-03 10:24] LABS: Absolute Lymphocytes (CBC) 0.7 K/uL (0.7-4.9); Hematocrit 33.4 % (36.0-45.0); Lymphocytes % 5.2 % (15.3-44.8); MCV 109.2 fL (80-100); MPV 9.1 fL (7.6-11.3); RBC Red Blood Cell Count 3.06 M/uL (3.86-4.86)
[2022-09-03] MEDS ORDERED: FENTANYL CITR 100 MCG/2 ML IV PRN (10:33)
--- NOTE | 2022-09-03 10:39 | P.CNS ---
Date of Consult: 09/03/22 Reason for Consult: Respiratory failure pleural effusion Chief Complaint: Severe arm pain respiratory distress History of Present Illness: 62 years of age with metastatic breast cancer who is receiving hormonal therapy having some problems since last week worsening dyspnea developed severe arm pain after the hormonal injection complaining of lower extremity edema prior to that in July patient was very active had flown in from [place] to the hospital massive effusion on the right side patient had a chest tube inserted spite BiPAP not doing well very tachycardic hypoxic Allergies No Known Allergies Allergy (Unverified 07/24/11 18:51) Review of Systems is unable to be obtained Physical Examination General: Moderate distress Respiratory: Rhonchi/gurgles Cardiovascular: Normal S1 S2, Edema (2+ edema) Gastrointestinal: Normal bowel sounds, Soft and benign Musculoskeletal: No clubbing, No swelling Laboratory Data (last 24 hrs) 09/03/22 09:54: WBC 12.70 H, Hgb 10.7 L D, Hct 33.4 L, Plt Count 224 09/03/22 03:45: PT 12.9 H, INR 1.09 09/03/22 03:45: WBC 8.20, Hgb 9.2 L, Hct 27.3 L, Plt Count 193 09/03/22 03:45: Sodium 133 L, Potassium 3.7, BUN 13, Creatinine 0.70, Glucose 102, Magnesium 2.0, Total Bilirubin 0.7, AST 74 H, ALT 44, Alkaline Phosphatase 268 H - Problems (1) Respiratory failure Current Visit: Yes Status: Acute Plan: Patient is 62 years of age admitted with respiratory failure have a significant pleural effusion on the right side s/p chest tube is in insertion have developed reexpansion pulmonary edema she still has opacification on the right side with minimal drainage now and is on 100% BiPAP very tachycardic plan to intubate and at the bedside patient has agreed to intubation is full code right now labs reviewed calcium is borderline elevated Qualifiers: Chronicity: acute
[2022-09-03] MEDS ORDERED: ONDANSETRON 4 MG/2 ML VIAL IV PRN (10:40)
[2022-09-03] MEDS ORDERED: ACETAMINOPHEN 500 MG TAB FT PRN (10:40)
[2022-09-03] MEDS ORDERED: ALBUTEROL 2.5 MG/3 ML NEB SOL NEB PRN (10:40)
[2022-09-03] MEDS ORDERED: propofoL 1,000 MG/100 ML VIAL IV ONE (10:47)
[2022-09-03 10:56] LABS: Anisocytosis SLIGHT; Blood Morphology Comment NOTED (NOT SEEN); Macrocytosis 1+; Platelet Estimate ADEQ; White Blood Cell Scan OK (OK)
[2022-09-03] MEDS ORDERED: FUROSEMIDE 20 MG/ 2ML VIAL IV ONE (11:00)
[2022-09-03] MEDS ORDERED: D5 0.9 NS 1,000 ML IV SCH (11:00)
[2022-09-03] MEDS ORDERED: Levofloxacin 750mg IV 750 MG/150 ML BAG IV SCH (11:00)
[2022-09-03] MEDS ORDERED: NOREPINEPHRINE BITARTRATE/D5W 4 MG/250 ML BAG IV ONE (11:03)
[2022-09-03] MEDS ORDERED: NOREPINEPHRINE BITARTRATE/D5W 4 MG/250 ML BAG IV SCH (11:15)
[2022-09-03 11:51] LABS: Arterial Blood Carboxyhemoglob 1.3 % (0-1.5); Blood Gas Oxyhemoglobin 89.4 % (94-97); Blood O2 Saturation 91.7 % (92-98.5)
--- NOTE | 2022-09-03 12:04 | RAD REPORT ---
EXAM DESCRIPTION: Catarinot Single View09/03/2022 11:22 am CLINICAL HISTORY: Placement of NGT/OGT. Post Insertion. COMPARISON: Chest Single View dated 09/03/2022; Chest Single View dated 09/03/2022; CHEST SINGLE VIEW da majo 11/03/2010; Chest Single View dated 09/03/2022 TECHNIQUE: Portable AP view of the chest. FINDINGS: Endotracheal tube has been placed, its tip terminating 2.4 centimeter above the gerardo. En teric tube courses along the stomach. Right basilar thoracostomy tube unchanged. Right basilar hydropneumothorax, stable or with slight imp rovement of the pneumothorax component. Right lung, and perihilar and basilar left airspace opacifica tion with central interstitial prominence, stable, could reflect central congestion/ fluid overload o r superimposed airspace disease. No pneumothorax or effusion on the left. The cardiomediastinal cont ours are unremarkable. IMPRESSION: Satisfactory positioning of the endotracheal and enteric tubes. Other stable findings as above.
[2022-09-03] MEDS: DEXMEDETOMIDINE HCL 200 MCG in NA CHLORIDE 0.9% 98 ML IV SCH ×2 (12:37→17:49)
--- NOTE | 2022-09-03 12:44 | P.PN ---
Subjective Date of Service: 09/03/22 Chief Complaint: Severe arm pain respiratory distress 62-year-old woman with a history of breast cancer status post modified radical mastectomy, history of chest wall and lung metastasis status post multiple cycles of chemotherapy in [facility], currently under Dr. Carson care and receiving chemotherapy presented to the emergency department with a complaint of CVA pains in bilateral arms. Work-up in the emergency department demonstratee massive right-sided pleural effusion. Patient diagnosed with right-sided malignant pleural effusion. ED physician placed right-sided chest tube which drained serosanguineous fluid. Repeat chest x-ray still demonstrates recollection of the right-sided fluid. Patient became hypoxic and was placed on BiPAP. Repeat chest x-ray after chest tube placement also demonstrated small right basilar pneumothorax, chest wall/subcutaneous pneumothorax extending to the right neck. Chest tube was no longer draining. Surgery Dr. Sanders and pulmonary Dr. Durham consulted. Dr. Sanders manipulated the chest tube after which the chest tube began draining again. Patient was still hypoxic on BiPAP with 100% FiO2, tachycardic and tachypneic. Patient admitted for further management. Review of Systems Other: No reported fever or chills. No reported nausea or vomiting or diarrhea. No reported abdominal pain. No reported altered mental status. Patient attributed her bilateral arm pain to side effect of the chemotherapy. Except as documented, all other systems reviewed and negative. Physical Examination - Vital Signs Blood Pressure: 146/75 Pulse: 152 Respirations: 29 - Physical Exam General: Alert, Cachectic, Acute distress HEENT: Normocephalic, Mucous membr. moist/pink, Sclerae nonicteric Neck: Supple, JVD not distended Respiratory: Diminished (Markedly diminished on the right), Crackles/rales (Bilateral) Cardiovascular: Normal S1 S2, Other (Tachycardia), Edema (Bilateral lower extremity) Gastrointestinal: Normal bowel sounds, Soft and benign, Non-distended, No tenderness Musculoskeletal: No erythema, No tenderness Integumentary: No rashes, No cyanosis Neurological: Normal speech, Cranial nerves 3-12 intact, Other (No focal motor deficit) - Studies Laboratory Data (last 24 hrs) 09/03/22 09:54: WBC 12.70 H, Hgb 10.7 L D, Hct 33.4 L, Plt Count 224 09/03/22 03:45: PT 12.9 H, INR 1.09 09/03/22 03:45: WBC 8.20, Hgb 9.2 L, Hct 27.3 L, Plt Count 193 09/03/22 03:45: Sodium 133 L, Potassium 3.7, BUN 13, Creatinine 0.70, Glucose 102, Magnesium 2.0, Total Bilirubin 0.7, AST 74 H, ALT 44, Alkaline Phosphatase 268 H Assessment And Plan - Current Problems (Diagnosis) (1) Malignant pleural effusion Current Visit: Yes Status: Acute (2) Pneumothorax Current Visit: Yes Status: Acute (3) Metastatic cancer to lung Current Visit: Yes Status: Acute (4) Stage IV breast cancer in female Current Visit: Yes Status: Acute (5) Severe protein-calorie malnutrition Current Visit: Yes Status: Acute (6) Hypovolemic shock Current Visit: Yes Status: Acute - Plan Admit to the ICU. Patient intubated and placed on mechanical ventilation. Pulmonary consulted. Dr. Durham is assisting with management. Chest tube management per surgery Dr. Sanders. Central line placed given hypotension, patient started on Levophed. Empiric IV Levaquin. IV morphine as needed for dyspnea and pain. Monitor CBC. Monitor BMP and optimize electrolytes. Poor prognosis. Patient wishes to be DNR. Ongoing goals of care discussions. Plan of care discussed with .
[2022-09-03] MEDS ORDERED: NOREPINEPHRINE IV SCH ×2 (15:00→18:00)
[2022-09-03] MEDS ORDERED: NA CHLORIDE 0.9% IV SCH (15:00)
[2022-09-03] MEDS ORDERED: NA CHLORIDE 0.9% 500 ML IV ONE (16:36)
[2022-09-03] MEDS ORDERED: ALBUMIN HUMAN 25% 100 ML IV ONE (16:36)
[2022-09-03] MEDS ORDERED: METHYLPREDNISOLONE 125 MG INJ IV SCH ×2 (17:03→17:06)
[2022-09-03] MEDS: MORPHINE 4 MG/ML SYR IV PRN ×2 (17:45→20:49)
[2022-09-03] MEDS ORDERED: D5W IV SCH (18:00)
[2022-09-03] MEDS: LORazepam 2 MG/ML VIAL IV PRN ×2 (18:01→20:08)
--- NOTE | 2022-09-03 18:10 | P.PN ---
Date of Service: 09/03/22 I was called to reevaluate patient because nursing staff report patient is requesting for withdrawal of care. I met his significant other by her bedside. Patient mental status reevaluated and she is alert and oriented x3 and deemed capable of making decision. Patient request extubation and withdrawal of care. She also stated she does not want NIV. I inquired from the significant other if they have had a discussion about patient wishes regarding the situation before and the significant other reaffirmed prior discussions and her wishes. Patient significant other confirmed they have come to a decision to withdraw care. Plan: Extubate patient Initiate comfort measures.
[2022-09-03] MEDS ORDERED: PROMETHAZINE INJ 25 MG/ML AMP IV PRN (18:12)
[2022-09-03 20:04] VITALS: O2SAT 62
[2022-09-03 20:25] VITALS: BP 81/51; TEMP 97.7
[2022-09-03] MEDS ORDERED: SUCCINYLCHOLINE 20 MG/ML (10 ML) IV ONE (20:55)
[2022-09-03] MEDS ORDERED: Mupirocin NASAL 2 APPL/1 GM TUBE NAS SCH (21:00)
[2022-09-04] MEDS ORDERED: METHYLPREDNISOLONE 40 MG INJ IV SCH (01:00)
--- NOTE | 2022-09-04 11:18 | EKG ---
Test Date: 2022-09-03 Test Time: 03:38:15 Jewel Bearing Driller: SHAWN MEASUREMENT RESULTS: Intervals: Rate: 124 GA: 152 QRSD: 84 QT: 312 QTc: 448 Delevan: P: 61 GA: 152 QRS: 30 T: 58 INTERPRETIVE STATEMENTS: Sinus tachycardia Nonspecific T wave abnormality Abnormal ECG Compared to ECG 03/05/2022 10:57:16 T-wave abnormality now present Electronically Signed On 09-04-22 11:17:10 CDT by Dc Huang
--- NOTE | 2022-09-04 18:35 | RAD REPORT ---
EXAM DESCRIPTION: RAD - Chest Single View - 09/03/2022 5:51 am ADDENDUM #1 THIS REPORT CONTAINS FINDINGS THAT MAY BE CRITICAL TO PATIENT CARE: The findings were verbally discus sed via telephone conference with Dr. Jasvir Pineda 6:34 AM September 03, 2022. The results were acknowl edged and understood. Electronically signed by: Yanelis Caro MD 09/03/2022 6:34 AM CDT End of Addendum EXAM: XR Chest, 1 View CLINICAL HISTORY: The patient is 62 years old and is Female; Right chest tube placement TECHNIQUE: Single view of the chest. COMPARISON: September 03, 2022. FINDINGS: Lungs: Airspace opacities in the right middle and right lower lobe. Subsegmental atelect asis left lung base. Pleural space: Small left pleural effusion. Heart: Unremarkable. No cardiomegaly. Mediastinum: Unremarkable. Bones/joints: The bones and joints are unchanged as visualized. Tubes, lines and devices: Right chest tube has been placed. Pleural effusion is markedly decrease d in size. Basilar pneumothorax visualized, at least 30% volume. Upper abdomen: No free air in the visualized upper abdomen. IMPRESSION: 1. Right chest tube has been placed. Pleural effusion is markedly decreased in size. B asilar pneumothorax visualized, at least 30% volume. 2. Airspace opacities in the right middle and right lower lobe. Subsegmental atelectasis left lung base. Electronically signed by: Yanelis Caro MD 09/03/2022 6:30 AM CDT Due to temporary technical issues with the PACS/Fluency reporting system, reports are being signed by the in house radiologists without review as a courtesy to insure prompt reporting. The interpreting radiologist is fully responsible for the content of the report.
--- NOTE | 2022-09-04 18:48 | RAD REPORT ---
EXAM DESCRIPTION: RAD - Chest Single View - 09/03/2022 4:06 am CLINICAL HISTORY: CHEST PAIN COMPARISON: None. TECHNIQUE: XR CHEST 1 VIEW 09/03/2022 3:23 AM CDT FINDINGS: The heart is slightly enlarged. There is only partial aeration of the right upper lobe wit h extensive right lung atelectasis. There is platelike atelectasis in the mid left lung. There is a l arge right pleural effusion. There may be small left pleural effusion. There is no pneumothorax. Ther e are no acute osseous findings. IMPRESSION: Large right pleural effusion with near complete right lung atelectasis. Electronically signed by: Jose Enrique Brown MD 09/03/2022 5:04 AM CDT Due to temporary technical issues with the PACS/Fluency reporting system, reports are being signed by the in house radiologists without review as a courtesy to insure prompt reporting. The interpreting radiologist is fully responsible for the content of the report.
--- NOTE | 2022-09-04 18:54 | RAD REPORT ---
EXAM DESCRIPTION: CT - Chest Abd Pelvis Wo Con - 09/03/2022 6:35 am CLINICAL HISTORY: Pleural effusion COMPARISON: None. TECHNIQUE: CT CHEST ABDOMEN PELVIS WITHOUT IV CONTRAST on 09/03/2022 4:10 AM CDT This exam was performed according to our departmental dose-optimization program, which includes autom ated exposure control, adjustment of the mA and/or kV according to patient size and/or use of iterati ve reconstruction technique. FINDINGS: Chest: The heart is normal in size. There is no pericardial effusion. Intrathoracic lymph nodes are not enlarged. There is a large right pleural effusion. There is soft tissue nodularity of the posterior right pleur al space with thickness up to 1.5 cm. There is a small left pleural effusion. The bronchus intermediu s is occluded. There is near complete atelectasis of the right lung. There is minimal nodular airspac e disease in the medial aspect of the left lower lobe superiorly. Abdomen: There are innumerable metastatic lesions throughout the liver measuring up to 4 cm. These ar e ill-defined and replaced approximately 30% of the liver parenchyma. There is no biliary dilatation. Gallbladder is not clearly seen. The pancreas and spleen are normal in appearance. The adrenal gland s and kidneys are unremarkable. Abdominal aorta is normal in course and caliber without aneurysm. There is no free air. There are mul tiple enlarged left para-aortic lymph nodes measuring up to 2.5 cm. Pelvis: There is no bowel obstruction. Urinary bladder is unremarkable. There is small amount of free pelvic fluid. Uterus is poorly seen. Appendix is not clearly seen. Skeleton: There are no acute osseous findings. No suspicious bony lesions. IMPRESSION: Large right pleural effusion with soft tissue nodularity, suggesting a malignant effusio n. Small left pleural effusion. Near complete atelectasis of the right lung with occlusion of bronchus intermedius. Underlying right basilar pulmonary mass is suspected. Metastatic disease throughout the liver and likely the left retroperitoneum. Electronically signed by: Jose Enrique Brown MD 09/03/2022 5:10 AM CDT Due to temporary technical issues with the PACS/Fluency reporting system, reports are being signed by the in house radiologists without review as a courtesy to insure prompt reporting. The interpreting radiologist is fully responsible for the content of the report.
--- NOTE | 2022-09-05 19:53 | P.HP ---
Certification for Inpatient Patient admitted to: Inpatient With expected LOS: >2 Midnights Practitioner: I am a practitioner with admitting privileges, knowledge of patient current condition, hospital course, and medical plan of care. Services: Services provided to patient in accordance with Admission requirements found in Title 42 Section 412.3 of the Code of Federal Regulations Patient History Date of Service: 09/03/22 Reason for admission: Severe arm pain respiratory distress History of Present Illness: 62-year-old woman with a history of breast cancer status post modified radical mastectomy, history of chest wall and lung metastasis status post multiple cycles of chemotherapy in [facility], currently under Dr. Alli pickens and receiving chemotherapy presented to the emergency department with a complaint of CVA pains in bilateral arms. Work-up in the emergency department demonstratee massive right-sided pleural effusion. Patient diagnosed with right-sided malignant p leural effusion. ED physician placed right-sided chest tube which drained serosanguineous fluid. Repeat chest x-ray still demonstrates recollection of the right-sided fluid. Patient became hypoxic and was placed on BiPAP. Repeat chest x-ray after chest tube placement also demonstrated small right basilar pneumothorax, chest wall/subcutaneous pneumothorax extending to the right neck. Chest tube was no longer draining. Surgery Dr. Sanders and pulmonary Dr. Durham consulted. Dr. Sanders manipulated the chest tube after which the chest tube began draining again. Patient was still hypoxic on BiPAP with 100% FiO2, tachycardic and tachypneic. Patient admitted for further management. Allergies lidocaine Allergy (Verified 09/03/22 17:14) Itching/Hives/Rash corn Adverse Reaction (Verified 09/03/22 17:14) Nausea/Vomiting Milk Containing Products (Dairy) Adverse Reaction (Verified 09/03/22 17:14) Nausea/Vomiting Home Medications: Ondansetron [Zofran (Odt)*] 4 mg PO Q6H PRN 09/03/22 traMADol HCL [Ultram*] 50 mg PO Q6H PRN 09/03/22 - Past Medical/Surgical History -: metastatic breast cancer -: bilateral radical mastectomy - Social History Smoking Status: Never smoker Alcohol use: No CD- Drugs: No Caffeine use: No Place of Residence: Home Review of Systems Other: Except as documented, all other systems reviewed and negative Physical Examination - Vital Signs Temperature: 97.7 F Blood Pressure: 81/51 Pulse: 127 Respirations: 18 Pulse Ox (%): 34 - Physical Exam Other Physical/Emotional Findings: General: Alert, Cachectic, Acute distress. HEENT: Normocephalic, Mucous membr. moist/pink, Sclerae nonicteric. Neck: Supple, JVD not distended. Respiratory: Diminished (Markedly diminished on the right), Crackles/rales (Bilateral). Cardiovascular: Normal S1 S2, Other (Tachycardia), Edema (Bilateral lower extremity). Gastrointestinal: Normal bowel sounds, Soft and benign, Non-distended, No tenderness. Musculoskeletal: No erythema, No tenderness. Integumentary: No rashes, No cyanosis. Neurological: Normal speech, Cranial nerves 3-12 intact, Other (No focal motor deficit) Assessment and Plan - Problems (Diagnosis) (1) Malignant pleural effusion Status: Acute (2) Pneumothorax Status: Acute (3) Metastatic cancer to lung Status: Acute (4) Stage IV breast cancer in female Status: Acute (5) Severe protein-calorie malnutrition Status: Acute (6) Hypovolemic shock Status: Acute - Plan Admit to the ICU. Patient intubated and placed on mechanical ventilation. Pulmonary consulted. Dr. Durham is assisting with management. Chest tube management per surgery Dr. Sanders. Central line placed given hypotension, patient started on Levophed. Empiric IV Levaquin. IV morphine as needed for dyspnea and pain. Monitor CBC. Monitor BMP and optimize electrolytes. Poor prognosis. Patient wishes to be DNR. Ongoing goals of care discussions. Plan of care discussed with . - Advance Directives Does patient have a Living Will: Yes Does patient have a Durable POA for Healthcare: Yes
--- NOTE | 2022-09-05 19:58 | P.DS ---
Admission Date: 09/03/22 Discharge Date: 09/05/22 Disposition: Reason for Admission: Severe arm pain respiratory distress - Problems (1) Malignant pleural effusion Status: Acute (2) Pneumothorax Status: Acute (3) Metastatic cancer to lung Status: Acute (4) Stage IV breast cancer in female Status: Acute (5) Severe protein-calorie malnutrition Status: Acute (6) Hypovolemic shock Status: Acute Brief History of Present Illness: 62-year-old woman with a history of breast cancer status post modified radical mastectomy, history of chest wall and lung metastasis status post multiple cycles of chemotherapy in [facility], currently under Dr. Alli pickens and receiving chemotherapy presented to the emergency department with a complaint of CVA pains in bilateral arms. Work-up in the emergency department demonstratee massive right-sided pleural effusion. Patient diagnosed with right-sided malignant pleural effusion. ED physician placed right-sided chest tube which drained serosanguineous fluid. Repeat chest x-ray still demonstrates recollection of the right-sided fluid. Patient became hypoxic and was placed on BiPAP. Repeat chest x-ray after chest tube placement also demonstrated small right basilar pneumothorax, chest wall/subcutaneous pneumothorax extending to the right neck. Chest tube was no longer draining. Surgery Dr. Sanders and pulmonary Dr. Durham consulted. Dr. Sanders manipulated the chest tube after which the chest tube began draining again. Patient was still hypoxic on BiPAP with 100% FiO2, tachycardic and tachypneic. Patient admitted for further management. Hospital Course: Patient intubated and placed on mechanical ventilation and admitted to the ICU Pulmonary consulted. Dr. Durham assisted with management. Surgery Dr. Sanders also saw patient for chest tube management. Central line placed given hypotension, patient started on Levophed. Patient treated with IV Levaquin. IV morphine as needed for dyspnea and pain. Prognosis is considered poor Patient made herself DNR. I was later called to reevaluate patient because nursing staff report patient is requesting for withdrawal of care. I met his significant other by her bedside. Patient mental status reevaluated and she is noted to be alert and oriented x3 and deemed capable of making decision. Patient request extubation and withdrawal of care. She also stated she does not want any NIV. I inquired from the significant other if they have had a discussion about patient wishes regarding the situation before and the significant other reaffirmed prior discussions and confirmed her wishes. Patient's significant other confirmed they have come to a decision to withdraw care. Patient was extubated and placed on comfort measures. She subsequently on 09/03/2020 at 6. Vital Signs/Physical Exam: Temp Pulse Resp BP Pulse Ox 97.7 F 127 H 18 81/51 L 34 L 09/05/22 19:53 09/05/22 19:53 09/05/22 19:53 09/05/22 19:53 09/05/22 19:53 Other Physical/Emotional Findings: General: Alert, Cachectic, Acute distress. HEENT: Normocephalic, Mucous membr. moist/pink, Sclerae nonicteric. Neck: Supple, JVD not distended. Respiratory: Diminished (Markedly diminished on the right), Crackles/rales (Bilateral). Cardiovascular: Normal S1 S2, Other (Tachycardia), Edema (Bilateral lower extremity). Gastrointestinal: Normal bowel sounds, Soft and benign, Non-distended, No tenderness. Musculoskeletal: No erythema, No tenderness. Integumentary: No rashes, No cyanosis. Neurological: Normal speech, Cranial nerves 3-12 intact, Other (No focal motor deficit) Laboratory Data at Discharge: WBC 12.70 thou/uL (4.3-10.9) H 09/03/22 09:54 Hgb 10.7 g/dL (12.0-15.0) L D 09/03/22 09:54 Hct 33.4 % (36.0-45.0) L 09/03/22 09:54 Plt Count 224 thou/uL (152-406) 09/03/22 09:54 PT 12.9 SECONDS (9.2-12.8) H 09/03/22 03:45 INR 1.09 09/03/22 03:45 Sodium 133 mEq/L (136-145) L 09/03/22 03:45 Potassium 3.7 mEq/L (3.5-5.1) 09/03/22 03:45 BUN 13 mg/dL (7-18) 09/03/22 03:45 Creatinine 0.70 mg/dL (0.55-1.02) 09/03/22 03:45 Glucose 102 mg/dL (74-106) 09/03/22 03:45 Magnesium 2.0 mg/dL (1.6-2.4) 09/03/22 03:45 Total Bilirubin 0.7 mg/dL (0.2-1.0) 09/03/22 03:45 AST 74 U/L (15-37) H 09/03/22 03:45 ALT 44 U/L (13-56) 09/03/22 03:45 Alkaline Phosphatase 268 U/L (45-117) H 09/03/22 03:45 Home Medications: Ondansetron [Zofran (Odt)*] 4 mg PO Q6H PRN 09/03/22 traMADol HCL [Ultram*] 50 mg PO Q6H PRN 09/03/22 Followup: Clarke Boykin MD [Primary Care Provider] -
== END 2022-09-03 20:56 | disposition expired | DRG 208 ==
LOC: ER 03:06 → ERHOLD 10:38 → 3RD-ICU 11:08
PROVIDERS: ADMIT Internal Medicine; ATTEND Internal Medicine
PROC: 5A1935Z Respiratory Ventilation, Less than 24 Consecutive Hours (ICD-10-PCS; principal; 2022-09-03)
PROC: 0BH17EZ Insertion of Endotracheal Airway into Trachea, Via Natural or Artificial Opening (ICD-10-PCS; 2022-09-03)
PROC: 0W9930Z Drainage of Right Pleural Cavity with Drainage Device, Percutaneous Approach (ICD-10-PCS; 2022-09-03)
DX: J96.01 Acute respiratory failure with hypoxia (principal); E43 Unspecified severe protein-calorie malnutrition; J93.9 Pneumothorax, unspecified; C78.00 Secondary malignant neoplasm of unspecified lung; J91.0 Malignant pleural effusion; Z68.1 Body mass index [BMI] 19.9 or less, adult; C78.7 Secondary malignant neoplasm of liver and intrahepatic bile duct; R64 Cachexia; C50.912 Malignant neoplasm of unspecified site of left female breast; L89.152 Pressure ulcer of sacral region, stage 2; R57.1 Hypovolemic shock; Z66 Do not resuscitate; Z17.0 Estrogen receptor positive status [ER+]; Z17.1 Estrogen receptor negative status [ER-]; Z88.8 Allergy status to other drugs, medicaments and biological substances; Z88.5 Allergy status to narcotic agent; Z92.21 Personal history of antineoplastic chemotherapy; Z90.13 Acquired absence of bilateral breasts and nipples; Z79.84 Long term (current) use of oral hypoglycemic drugs; Z91.011 Allergy to milk products; Z91.018 Allergy to other foods; Z79.899 Other long term (current) drug therapy
CPT/HCPCS: 31500; 36415; 36600; 51702; 71045; 71250; 74176; 80048; 80076; 82805; 83735; 83880; 84484; 85025; 85610; 87040; 93005; 94002; 99291; J1170; J1940; J2405; J2543; J2704; J2765; J2930; J3010; J7030; J7040; J7042; J7050; J7060; P9047